=== PATIENT | male | born 1960 | race Two or more races ===

== ENCOUNTER 2018-10-10 07:30 | Inpatient (IN) | payer MEDICARE, OTHER ==
[~2018-10-10 07:30] MED LIST: Acetaminophen 500 MG Tab PO ONE; Celecoxib 200 MG Cap PO ONE; Dextrose 5%-Lactated Ringers 1,000 ML IV SCH; Ketamine 50 MG in Sodium Chloride 0.9% 49.5 ML IV SCH; Ketamine 500 MG/5 ML MDV IV SCH; Ropivacaine 58 ML, Dexamethasone 8 MG, EPINEPHrine 0.4 MG, Sodium Chloride 0.9% 19.6 ML NERVRT SCH; ceFAZolin 2 GM in Premix Bag 1 BAG IV ONE
[2018-11-07] MEDS ORDERED: Acetaminophen 500 MG Tab PO ONE (06:00)
[2018-11-07] MEDS ORDERED: Dextrose 5%-Lactated Ringers 1,000 ML IV SCH (06:00)
[2018-11-07] MEDS ORDERED: ceFAZolin 2 GM in Premix Bag 1 BAG IV ONE (06:30)
[2018-11-07] MEDS ORDERED: Meropenem 500 MG SDV ONE (06:35)
[2018-11-07] MEDS ORDERED: Succinylcholine 200 MG/10 ML MDV ONE (07:03)
[2018-11-07] MEDS ORDERED: Neostigmine Methylsulfate 1 MG/ML 5 ML Syringe ONE (07:03)
[2018-11-07] MEDS ORDERED: fentaNYL 250 MCG/5 ML SDV ONE (07:03)
[2018-11-07] MEDS ORDERED: Dexamethasone 4 MG/ML SDV ONE (07:03)
[2018-11-07] MEDS ORDERED: Glycopyrrolate 0.2 MG/ML 5 ML MDV ONE (07:03)
[2018-11-07] MEDS ORDERED: Rocuronium 50 MG/5 ML Vial ONE (07:03)
[2018-11-07] MEDS ORDERED: Propofol 200 MG/20 ML SDV ONE (07:03)
[2018-11-07] MEDS ORDERED: Ondansetron 4 MG/2 ML SDV ONE (07:03)
[2018-11-07] MEDS ORDERED: Ketamine 500 MG/5 ML MDV IV SCH (07:30)
[2018-11-07] MEDS ORDERED: Ketamine 50 MG in Sodium Chloride 0.9% 49.5 ML IV SCH (07:30)
[2018-11-07] MEDS ORDERED: Ropivacaine 58 ML, Dexamethasone 8 MG, EPINEPHrine 0.4 MG, Sodium Chloride 0.9% 19.6 ML NERVRT SCH ×4 (07:30)
[2018-11-07] MEDS ORDERED: HYDROmorphone/Normal Saline 15 MG/30 ML PCA IV PRN (07:42)
[2018-11-07] MEDS ORDERED: Naloxone 0.4 MG/ML SDV IV PRN (07:55)
[2018-11-07] MEDS ORDERED: HYDROmorphone 2 MG Tab PO PRN (10:28)
[2018-11-07] MEDS ORDERED: Cyclobenzaprine 10 MG Tab PO PRN (10:29)
[2018-11-07] MEDS ORDERED: hydrOXYzine HCl 100 MG/2 ML SDV IM PRN (10:29)
[2018-11-07] MEDS: Tamsulosin 0.4 MG Cap.ER PO SCH ×2 (11:39→20:25)
[2018-11-07] MEDS: Ondansetron 4 MG/2 ML SDV IVPUSH PRN ×3 (13:03→20:34)
[2018-11-07] MEDS: Acetaminophen 500 MG Tab PO SCH ×2 (13:04→20:25)
[2018-11-07] MEDS: ceFAZolin 2 GM in Premix Bag 1 BAG IV SCH ×2 (15:02→22:44)
[2018-11-07] MEDS: Dextrose 5%-Lactated Ringers 1,000 ML IV SCH (17:43)
[2018-11-08] MEDS: Dextrose 5%-Lactated Ringers 1,000 ML IV SCH (00:38)
[2018-11-08] MEDS: Acetaminophen 500 MG Tab PO SCH ×4 (02:48→20:21)
[2018-11-08] MEDS: ceFAZolin 2 GM in Premix Bag 1 BAG IV SCH (05:45)
--- NOTE | 2018-11-08 07:42 | PCM.PN ---
- General Info Date of Service: 11/08/18 Admission Dx/Problem (Free Text): Incisional Hernia Subjective Update: POD #1. Pt doing well. Tolerating oral intake. Good urine output; is taking flomax. +gas, no BM yet. Functional Status: Reports: Pain Controlled, Tolerating Diet, Urinating - Review of Systems General: Reports: No Symptoms HEENT: Reports: No Symptoms Pulmonary: Reports: No Symptoms Cardiovascular: Reports: No Symptoms Gastrointestinal: Reports: Abdominal Pain Genitourinary: Reports: No Symptoms Musculoskeletal: Reports: No Symptoms Skin: Reports: No Symptoms Neurological: Reports: No Symptoms Psychiatric: Reports: No Symptoms - Patient Data Vitals - Most Recent: Last Vital Signs Temp 36.1 C 11/08/18 07:15 Pulse 85 11/08/18 07:15 Resp 16 11/08/18 07:15 BP 129/76 11/08/18 07:15 Pulse Ox 97 11/08/18 07:15 Weight - Most Recent: 114.668 kg I&O - Last 24 Hours: Intake & Output 11/07/18 11/08/18 11/08/18 22:59 06:59 14:59 Intake Total 2270 1982 Output Total 1025 1600 675 Balance 1245 382 -675 Med Orders - Current: Current Medications Acetaminophen (Tylenol Extra Strength) 1,000 mg PO Q6H [facility] Last Admin: 11/08/18 02:48 Dose: 1,000 mg Bisacodyl (Dulcolax) 10 mg PO BID [facility] Cyclobenzaprine HCl (Flexeril) 10 mg PO Q6H PRN PRN Reason: MUSCLSE SPASM Hydromorphone HCl (Dilaudid) 4 mg PO Q4H PRN PRN Reason: PAIN Last Admin: 11/07/18 17:51 Dose: 4 mg Hydroxyzine HCl (Vistaril) 100 mg IM Q4H PRN PRN Reason: PAIN Dextrose/Lactated Ringer's (Dextrose 5%-Lactated Ringers) 1,000 mls @ 150 mls/ hr IV ASDIRECTED [facility] Last Admin: 11/08/18 00:38 Dose: 150 mls/hr Ibuprofen (Motrin) 600 mg PO Q6H PRN PRN Reason: Pain Lisinopril (Prinivil) 10 mg PO DAILY [facility] Naloxone HCl (Narcan) 0.1 mg IV ASDIRECTED PRN PRN Reason: decreased respiratory rate Ondansetron HCl (Zofran) 4 mg IVPUSH Q4H PRN PRN Reason: Nausea Last Admin: 11/07/18 20:34 Dose: 4 mg Tamsulosin HCl (Flomax) 0.4 mg PO BEDTIME [facility] Last Admin: 11/07/18 20:25 Dose: 0.4 mg Discontinued Medications Acetaminophen (Tylenol Extra Strength) 1,000 mg PO ONETIME ONE Stop: 10/10/18 07:16 Acetaminophen (Tylenol Extra Strength) 1,000 mg PO ONETIME ONE Stop: 11/07/18 06:01 Last Admin: 11/07/18 06:18 Dose: 1,000 mg Celecoxib (Celebrex) 200 mg PO ONETIME ONE Stop: 10/10/18 07:16 Ropivacaine 58 ml/Dexamethasone 8 mg/Epinephrine HCl 0.4 mg/ Sodium Chloride 19.6 ml 0 ml NERVRT ASDIRECTED [facility] Last Admin: 11/07/18 08:10 Dose: 80 syringe Dexamethasone (Dexamethasone) Confirm Administered Dose 4 mg .ROUTE .STK-MED ONE Stop: 11/07/18 07:04 Fentanyl (Sublimaze) Confirm Administered Dose 250 mcg .ROUTE .STK-MED ONE Stop: 11/07/18 07:04 Glycopyrrolate (Robinul) Confirm Administered Dose 1 mg .ROUTE .STK-MED ONE Stop: 11/07/18 07:04 Hydromorphone HCl (Dilaudid Polymerization Oven Tender 15 Mg In Ns 30 Ml) 0 mg IV ASDIRECTED PRN; Protocol PRN Reason: Pain Last Admin: 11/07/18 08:12 Dose: 0.3 mg Cefazolin Sodium/Dextrose 2 gm (/ Premix) 50 mls @ 100 mls/hr IV ONETIME ONE Stop: 11/07/18 06:59 Last Admin: 11/07/18 07:08 Dose: 100 mls/hr Dextrose/Lactated Ringer's (Dextrose 5%-Lactated Ringers) 1,000 mls @ 100 mls/ hr IV ASDIRECTED [facility] Last Admin: 11/07/18 06:19 Dose: 100 mls/hr Linezolid (Zyvox) Confirm Administered Dose 300 mls @ as directed .ROUTE .STK- MED ONE Stop: 11/07/18 06:36 Cefazolin Sodium/Dextrose 2 gm (/ Premix) 50 mls @ 100 mls/hr IV Q8H [facility] Stop: 11/08/18 06:59 Last Admin: 11/08/18 05:45 Dose: 100 mls/hr Ketamine HCl (Ketalar) 35 mg IV ASDIRECTED [facility] Linezolid (Zyvox) 600 mg IRR .STK-MED ONE Stop: 11/07/18 07:50 Last Admin: 11/07/18 07:49 Dose: 600 mg Meropenem (Merrem) Confirm Administered Dose 500 mg .ROUTE .STK-MED ONE Stop: 11/07/18 06:36 Last Admin: 11/07/18 07:48 Dose: 500 mg Neostigmine Methylsulfate (Neostigmine) Confirm Administered Dose 5 mg .ROUTE .STK-MED ONE Stop: 11/07/18 07:04 Ondansetron HCl (Zofran) Confirm Administered Dose 4 mg .ROUTE .STK-MED ONE Stop: 11/07/18 07:04 Propofol (Diprivan 20 Ml) Confirm Administered Dose 200 mg .ROUTE .STK-MED ONE Stop: 11/07/18 07:04 Rocuronium [place] (Zemuron) Confirm Administered Dose 50 mg .ROUTE .STK-MED ONE Stop: 11/07/18 07:04 Succinylcholine Chloride (Quelicin) Confirm Administered Dose 200 mg .ROUTE .STK -MED ONE Stop: 11/07/18 07:04 - Exam Quality Assessment: DVT Prophylaxis General: Alert, Oriented HEENT: Pupils Equal, Pupils Reactive, EOMI, Mucous Membr. Moist/[place]: Supple Lungs: Clear to Auscultation, Normal Respiratory Effort Cardiovascular: Regular Rate, Regular Rhythm GI/Abdominal Exam: Normal Bowel Sounds, Soft Extremities: Normal Inspection, Normal Range of Motion, Non-Tender, No Pedal Edema, Normal Capillary Refill Skin: Warm, Dry, Intact Wound/Incisions: Healing Well Neurological: No New Focal Deficit Psy/Mental Status: Alert, Normal Affect, Normal Mood - Problem List & Annotations (1) Incarcerated incisional hernia SNOMED Code(s): 331965671 Code(s): K43.0 - INCISIONAL HERNIA WITH OBSTRUCTION, WITHOUT GANGRENE Status: Acute Current Visit: Yes (2) Status post hernia repair SNOMED Code(s): 39130070551463, 89530995350706 Code(s): Z98.890 - OTHER SPECIFIED POSTPROCEDURAL STATES; Z87.19 - PERSONAL HISTORY OF OTHER DISEASES OF THE DIGESTIVE SYSTEM Status: Acute Current Visit: Yes Annotation/Comment:: Incisional - Problem List Review Problem List Initiated/Reviewed/Updated: Yes - Plan Plan:: 1. s/p laparoscopic incisional hernia repair. Plan for discharge home tomorrow. Will add dulcolax BID. Had some nausea after taking Dilaudid, will add ibuprofen prn.
[2018-11-08] MEDS: Bisacodyl 5 MG Tab PO SCH ×2 (08:26→20:21)
[2018-11-08] MEDS: Lisinopril 10 MG Tab PO SCH (08:27)
[2018-11-08] MEDS: Ibuprofen 600 MG Tab PO PRN ×3 (08:33→20:26)
[2018-11-08] MEDS: Tamsulosin 0.4 MG Cap.ER PO SCH (20:22)
[2018-11-09] MEDS: Acetaminophen 500 MG Tab PO SCH ×2 (02:34→08:34)
[2018-11-09] MEDS ORDERED: Magnesium Hydroxide 400 MG/5 ML Susp 30 ML Cup PO PRN (07:39)
--- NOTE | 2018-11-09 08:01 | DISCH ---
ADMISSION DIAGNOSES: 1. Incarcerated incisional hernia. 2. Hypertension. 3. Low back pain, chronic. DISCHARGE DIAGNOSES: 1. Diagnostic laparoscopy with lysis of adhesions: a. Repair of incarcerated incisional hernia with mesh. b. Repair of area of deserialization of small bowel. c. Placement of Vicryl mesh for incarcerated incisional hernia, extensive intraabdominal adhesions, and area of deserialization of small bowel. Date of surgery: 11/07/2018. Surgeon: Sloan Ibarra MD. HISTORY: Gaston Barnes is a 58-year-old male with incarcerated incisional hernia. After preoperative evaluation and discussion of possible risks and possible complications, he wished to proceed with surgical procedure. HOSPITAL COURSE: Gaston had a surgery on 11/07/2018. He had no operative complications. On postoperative day #1, his pain was managed with oral pain medication and he was given bowel stimulation. On postoperative day #2, he was able to be discharged to home. He had not had a bowel movement, but was passing flatus. His pain was controlled with Tylenol and ibuprofen. Vital signs were stable. Activity was good. PHYSICAL EXAMINATION: GENERAL: Gaston Barnes is a 58-year-old male. VITAL SIGNS: Height is 5 feet 10 inches, weight is 252 pounds. TPR is 97, 77, 16, blood pressure 136/85. HEENT: Negative. NECK: Supple. HEART: Regular rate and rhythm. LUNGS: Clear. ABDOMEN: Sutures intact. Incisions look good. He has a roll of Kerlix over the incision site and has been wearing abdominal binder. EXTREMITIES: Without peripheral edema. DISPOSITION: Discharged to home. CONDITION: Stable and improving. FOLLOWUP: Followup appointment with Sloan Ibarra MD, on 11/15/2018 at 9:00 a.m. HOME MEDICATIONS: 1. Tylenol Extra Strength 1000 mg oral q.6 h. 2. Motrin/ibuprofen 600 mg oral q.6 h. p.r.n. pain, take with food or milk. 3. Milk of magnesia 30 mL, take 1 daily p.r.n. constipation, two doses sent home with the patient. 4. Flomax/tamsulosin 0.4 mg oral at bedtime, #30. 5. He is to resume home medication of lisinopril 10 mg oral daily. DISCHARGE DIET: Usual diet as tolerated. Drink 8 to 10 glasses of water a day. ACTIVITY: No lifting over 10 pounds for 6 weeks. Driving: Do not drive for 1 week. Shower/bathing: May shower. DISCHARGE INSTRUCTIONS: Notify provider if any fever, increased pain. Keep site clean and dry. Wound incision care, keep a pressure dressing over the area where hernia was to prevent fluid buildup between abdomen and mesh and wear abdominal binder for at least 2 weeks, longer if tolerated. SPECIAL INSTRUCTIONS: Use incentive spirometer 10 times every hour while awake.
[2018-11-09] MEDS: Bisacodyl 5 MG Tab PO SCH (08:25)
[2018-11-09] MEDS: Lisinopril 10 MG Tab PO SCH (08:34)
--- NOTE | 2018-11-09 21:07 | OR ---
DATE OF PROCEDURE: 11/07/2018 PREOPERATIVE DIAGNOSIS: Incarcerated incisional hernia. POSTOPERATIVE DIAGNOSES: 1. Incarcerated incisional hernia. 2. Extensive intraabdominal adhesions. 3. Areas of small bowel superficial deserosalization x2. OPERATIVE PROCEDURES: 1. Diagnostic laparoscopy with lysis of extensive adhesions. a. Repair of incarcerated incisional hernia with mesh (70811). b. Repair of area of superficial deserosalization of small bowel x2 (55812). c. Placement of Vicryl mesh to displace pelvic and abdominal wall from underlying viscera to limit recurrent adhesion formation (51722). ANESTHESIA: General. SAND CONTROL WORKER: Shellie Eden PA-C and PAS. Lisa INDICATION FOR PROCEDURE: This is a 58-year-old male presenting with incarcerated incisional hernia. He has had a lower midline incision used previously for back surgery exposure and presents now with an incarcerated hernia on the upper end of the lower midline incision. This appears more likely to contain incarcerated omentum based on CT findings and the clinical presentation. The plan is to proceed with diagnostic laparoscopy with laparotomy if necessary and repair of the hernia with mesh. Potential risks including bleeding, infection, injury to underlying viscera, possible recurrence of the hernia or the mesh becoming infected as well as remote possibility of cardiopulmonary, septic, or hemorrhagic complications leading to were all discussed, and the patient wishes to proceed. DETAILS OF PROCEDURE: The patient was taken to the operating room and placed in a supine position. After general endotracheal anesthesia was induced, a Cha catheter was inserted and the abdomen prepped and draped. The Cha catheter was removed at the end of the procedure. In the right lateral abdomen, a transverse incision was made and the peritoneal cavity entered under direct vision with an Optiview trocar inflated to 15 mmHg pressure of CO2. Laparoscope was reinserted. No underlying trocar insertion site or injuries were seen. Following this, then 5 mm trocars were placed in the right lower quadrant as well as the right upper quadrant under direct vision. Following this, then extensive adhesions between the omentum and the anterior abdominal wall were divided with a Harmonic scalpel. As one approached the lower abdomen, there were 2 areas of small bowel, which were somewhat adherent to the abdominal wall. A dissection plane could generally be established between those and this was carried down with sharp dissection. At the conclusion of that phase and clearance of abdominal wall for placement of the mesh, the bowel was inspected. There were 2 areas that appeared to be very superficial areas of deserosalization, and these were then re-serosalized with [id number] stitches of 3-0 Vicryl seromuscular stitch, and at the conclusion, a fibrin sealant was placed over these areas as well. At this point, the area of the herniation was encountered with a fair bit of incarcerated omentum within it. This was all eventually reduced. Some of the hernia sac was then excised as well and sent as a specimen. The fascial defect itself measured around 3 to 4 cm and was circular in configuration. Initially, we reapproximated the fascia from within using an 0 Vicryl stitch. To these, [id number] stitches were placed, which brought up the fascia to have apposition in closing this with a transversely oriented approach. A 20.[address] mesh with the balloon positioning system was then selected. This was soaked in an antibiotic- containing saline solution and placed into an intraperitoneal location. The balloon catheter was then pulled up through a stab wound overlying the central area of the hernia and the balloon inflated, thus pushing the mesh up against the abdominal wall. The mesh was then refixed to the abdominal wall with absorbable tacking screws and outer layer was initially placed circumferentially and then an inner layer more close to the edge of the fascial defect. At that point, the balloon was deflated and removed. There appeared to be good fixation of the mesh in all areas. The fibrin sealant was at that point applied over the small bowel re-serosalization areas and the bowel was once again inspected and no other additional abnormalities appeared to be present. The Vicryl mesh was then placed across the lower abdomen and down into the pelvis to some extent and then up against the rest of the abdominal wall including underlying the mesh to limit recurrent adhesion formation. Some additional antibiotic consisting of meropenem and Zyvox was then injected as well. At that point, the trocars were removed. Fascia at the 12 mm camera port was closed with 0 Vicryl stitch and skin at each incision with 4-0 Vicryl skin stitch. Dressing was applied. The patient was taken to the recovery room in satisfactory condition. There were no evident complications. Physician esol teacher assistant, Shellie Eden, played an essential role in assisting in this case, helping to position the patient, retract structures as needed, as well as suturing and cutting sutures when indicated. Her presence improved patient safety and decreased the operative time. Sloan Ibarra MD /[id number]
== END 2018-11-09 09:15 | disposition home or self-care (01) | DRG 331 ==
LOC: JP.SDSSCHI 11-07 05:20 → JP.SDS 11-07 05:21 → EDSTATUS 11-07 07:15 → JP.MS 11-07 09:30
PROVIDERS: ADMIT Surgery; ATTEND Surgery
PROC: 0WUF4JZ Supplement Abdominal Wall with Synthetic Substitute, Percutaneous Endoscopic Approach (ICD-10-PCS; principal; 2018-11-07)
PROC: 0DQ84ZZ Repair Small Intestine, Percutaneous Endoscopic Approach (ICD-10-PCS; 2018-11-07)
PROC: 0DNU4ZZ Release Omentum, Percutaneous Endoscopic Approach (ICD-10-PCS; 2018-11-07)
PROC: 0DN84ZZ Release Small Intestine, Percutaneous Endoscopic Approach (ICD-10-PCS; 2018-11-07)
PROC: 0DNW4ZZ Release Peritoneum, Percutaneous Endoscopic Approach (ICD-10-PCS; 2018-11-07)
PROC: 3E0M45Z Introduction of Adhesion Barrier into Peritoneal Cavity, Percutaneous Endoscopic Approach (ICD-10-PCS; 2018-11-07)
DX: K43.0 Incisional hernia with obstruction, without gangrene (principal); K66.0 Peritoneal adhesions (postprocedural) (postinfection); I10 Essential (primary) hypertension; Z87.891 Personal history of nicotine dependence; Z88.5 Allergy status to narcotic agent; K59.8 Other specified functional intestinal disorders; M54.9 Dorsalgia, unspecified; G89.29 Other chronic pain
CPT/HCPCS: 36415; 80048; 83735; 84100; 85027; 88302; A9270-GY; C1781; J0171; J0330; J0690; J1100; J1170; J2020; J2185; J2405; J2704; J2710; J2795; J3010; J3490; J7042; J7050

== ENCOUNTER 2018-11-09 13:07 | Inpatient (IN) | payer MEDICARE, OTHER ==
[2018-11-09] MEDS ORDERED: HYDROmorphone 0.5 MG/0.5 ML Syringe IVPUSH ONE ×2 (13:15→13:58)
[2018-11-09] MEDS ORDERED: Sodium Chloride 0.9% 1,000 ML IV SCH ×2 (13:15→14:15)
[2018-11-09] MEDS ORDERED: Ondansetron 4 MG/2 ML SDV IVPUSH ONE (13:16)
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
[2018-11-09] MEDS ORDERED: Piperacillin/Tazobactam 4.5 GM in Sodium Chloride 0.9% 100 ML IV ONE (14:24)
[2018-11-09] MEDS ORDERED: Sodium Chloride 0.9% 10 ML Syringe FLUSH ONE (14:27)
[2018-11-09] MEDS ORDERED: Sodium Chloride 0.9% 75 ML IV ONE (14:27)
[2018-11-09] MEDS ORDERED: Iopamidol 612 MG/ML 150 ML Bottle IV SCH (14:30)
[2018-11-09] MEDS ORDERED: Dexamethasone 4 MG/ML SDV ONE (15:09)
[2018-11-09] MEDS ORDERED: Ondansetron 4 MG/2 ML SDV ONE (15:09)
[2018-11-09] MEDS ORDERED: fentaNYL 250 MCG/5 ML SDV ONE (15:09)
[2018-11-09] MEDS ORDERED: Succinylcholine 200 MG/10 ML MDV ONE (15:09)
[2018-11-09] MEDS ORDERED: Propofol 200 MG/20 ML SDV ONE (15:09)
[2018-11-09] MEDS ORDERED: Neostigmine Methylsulfate 1 MG/ML 5 ML Syringe ONE (15:09)
[2018-11-09] MEDS ORDERED: Glycopyrrolate 0.2 MG/ML 5 ML MDV ONE (15:09)
[2018-11-09] MEDS ORDERED: Rocuronium 50 MG/5 ML Vial ONE ×2 (15:09→16:12)
--- NOTE | 2018-11-09 15:29 | CRLCT ---
INDICATION: pain in mid abdomen. status post surgery 07 November 2018150 mL isovue 300. 410 images HISTORY: Abdominal pain. COMPARISON: None. TECHNIQUE: CT of the abdomen and pelvis. 150 cc of Isovue-300 IV. Coronal/sagittal reconstruction images. FINDINGS: Lung bases: There is no pleural or pericardial effusion. The heart size is normal. Mildly distended distal esophagus. There is bibasilar dependent atelectasis. Abdomen/pelvis: There is a small amount of perihepatic ascites, which extends into the hepatorenal fossa. There is no solid hepatic mass. No dilation of intrahepatic biliary radicals. No portal vein thrombosis. No inflammatory changes of the gallbladder. No adrenal mass. Symmetric nephrograms. Benign right renal cyst. Spleen size is normal. No pancreatic mass or pancreatic duct dilation. No glandular atrophy. Trace amount of free fluid in the pelvis. Small amount of free intraperitoneal air. There is no wall thickening within the small bowel. There is collapse of the sigmoid and descending colon, which mimics wall thickening. There is no pneumatosis. There is no portal venous gas. There is no loculated fluid collection. The sigmoid colon appears adherent to the anterior abdominal wall, with extraluminal gas seen on series 2, image 98. Differential diagnosis includes a contained perforation. No adenopathy is seen by size criteria in the pelvis, small bowel mesentery, or gastrohepatic ligament. The visceral artery branches are patent. There is a 13 millimeter short axis dimension lymph node adjacent to the extrahepatic main portal vein on image 41 of series 2. The splenic vein and SMV are patent. There is a small fluid collection containing gas within the anterior abdominal wall, which is seen best on image 84 series 2. This could represent a postoperative hematoma, seroma, or abscess. The bone windows demonstrate no lytic or blastic bone lesions. The alignment is preserved. Fusion changes are present from L4 through S1. Impression: 1. Pneumoperitoneum, with a small amount of ascites. The patient is post recent ventral abdominal wall hernia repair. 2. There is a small fluid collection present along the anterior abdominal wall containing a locule of gas, which measures 2.8 x 4.7 cm in AP and transverse dimensions. This is seen best on image 84 of series 2. Differential diagnosis includes a postoperative hematoma, seroma, or less likely abscess. 3. Several loops of small bowel appear adherent to the anterior abdominal wall, likely adhesive disease. 4. This includes a loop of sigmoid colon with adjacent extraluminal gas on image 98, series 2. Differential diagnosis for this finding includes a contained perforation. A free perforation should be associated with large volume pneumoperitoneum, which is absent in this case. 5. 13 millimeter short axis dimension lymph node adjacent to the extrahepatic main portal vein. This is indeterminate. Attention on follow-up. 6. Case reviewed with Dr. Ibarra of the referring clinical service, 11/09/2018, 1525 hours. Dictated by Hemant Rodriguez MD @ 11/09/2018 3:28:03 PM Please note that all CT scans at this facility use dose modulation, iterative reconstruction, and/or weight-based dosing when appropriate to reduce radiation dose to as low as reasonably achievable. Dictated by: Hemant Rodriguez MD @ 11/09/2018 15:28:30 (Electronically Signed)
--- NOTE | 2018-11-09 15:50 | CRLCR ---
INDICATION: Abdominal pain. COMPARISON: None available. FINDINGS: PA and lateral views of the chest were obtained. There is very shallow inspiration resulting in crowding of lung markings. I believe that the lungs are clear. The heart is increased in size, probably simply from shallow inspiration. The mediastinum is normal in appearance. The osseous structures are normal in appearance for the patient`s age. IMPRESSION: Very shallow inspiration results in crowding of lung markings. Probably no active disease seen in the chest. Dictated by Wayne Garg MD @ Nov 09 2018 3:47PM Signed by Dr. Wayne Garg @ Nov 09 2018 3:48PM
[2018-11-09] MEDS ORDERED: Phenylephrine 1% 10 MG/ML SDV ONE (15:54)
[2018-11-09] MEDS ORDERED: Ropivacaine 57 ML, Dexamethasone 8 MG, EPINEPHrine 0.4 MG, Sodium Chloride 0.9% 20.6 ML NERVRT SCH ×4 (16:00)
[2018-11-09] MEDS ORDERED: Meropenem 500 MG SDV ONE ×3 (16:03→16:20)
[2018-11-09] MEDS ORDERED: Naloxone 0.4 MG/ML SDV IV PRN (16:14)
[2018-11-09] MEDS ORDERED: Sodium Chloride 0.9% 10 ML ONE (16:21)
[2018-11-09] MEDS ORDERED: Lactated Ringers 1,000 ML ONE (17:32)
[2018-11-09] MEDS ORDERED: Norepinephrine 4 MG/4 ML SDV ONE (18:37)
[2018-11-09] MEDS ORDERED: Dextrose 5% in Water 250 ML ONE (18:41)
[2018-11-09] MEDS ORDERED: Labetalol 20 MG/4 ML Syringe IVPUSH PRN (18:48)
[2018-11-09] MEDS: Dextrose 5%-Lactated Ringers 1,000 ML IV SCH (19:00)
[2018-11-09] MEDS ORDERED: Norepinephrine 4 MG in Dextrose 5% in Water 246 ML IV SCH ×2 (19:00)
[2018-11-09] MEDS: Lactated Ringers 1,000 ML IV SCH ×2 (19:00→20:50)
[2018-11-09] MEDS: Meropenem 500 MG in Sodium Chloride 0.9% 50 ML IV SCH (19:15)
[2018-11-09] MEDS: Pantoprazole 40 MG Vial IVPUSH SCH (19:16)
[2018-11-09] MEDS: hydrOXYzine HCl 100 MG/2 ML SDV IM PRN (19:29)
[2018-11-09] MEDS ORDERED: Lactated Ringers 750 ML IV SCH (19:30)
[2018-11-09] MEDS: Piperacillin/Tazobactam 3.375 GM in Sodium Chloride 0.9% 50 ML IV SCH (20:43)
[2018-11-10] MEDS: Meropenem 500 MG in Sodium Chloride 0.9% 50 ML IV SCH ×4 (01:00→20:35)
[2018-11-10] MEDS: Piperacillin/Tazobactam 3.375 GM in Sodium Chloride 0.9% 50 ML IV SCH (02:41)
[2018-11-10] MEDS: Dextrose 5%-Lactated Ringers 1,000 ML IV SCH ×2 (05:44→16:09)
[2018-11-10] MEDS: Lactated Ringers 1,000 ML IV SCH ×2 (06:24→07:00)
--- NOTE | 2018-11-10 06:46 | PCM.PN ---
- General Info Date of Service: 11/10/18 Admission Dx/Problem (Free Text): Acute Abdominal Pain Subjective Update: Pt started on levophed drip yesterday evening. Fair urine output. Pain controlled. Functional Status: Reports: Pain Controlled, Urinating - Review of Systems General: Reports: No Symptoms HEENT: Reports: No Symptoms Pulmonary: Reports: No Symptoms Cardiovascular: Reports: No Symptoms Gastrointestinal: Reports: Abdominal Pain Genitourinary: Reports: No Symptoms Musculoskeletal: Reports: No Symptoms Skin: Reports: No Symptoms Neurological: Reports: No Symptoms Psychiatric: Reports: No Symptoms - Patient Data Vitals - Most Recent: Last Vital Signs Temp 35.6 C 11/10/18 03:00 Pulse 77 11/10/18 06:34 Resp 12 11/10/18 06:34 BP 102/63 11/10/18 06:34 Pulse Ox 94 L 11/10/18 06:34 Weight - Most Recent: 128.503 kg I&O - Last 24 Hours: Intake & Output 11/09/18 11/09/18 11/10/18 14:59 22:59 06:59 Intake Total 3031 Output Total 475 605 Balance -475 2426 Lab Results Last 24 Hours: Laboratory Results - last 24 hr 11/09/18 11/09/18 11/09/18 Range/Units 13:57 13:57 13:57 WBC 10.6 (4.5-11.0) K/uL RBC 4.65 (4.30-5.90) M/uL Hgb 13.8 (12.0-15.0) g/dL Hct 42.4 (40.0-54.0) % MCV 91 (80-98) fL MCH 30 (27-31) pg MCHC 33 (32-36) % Plt Count 215 (150-400) K/uL Neut % (Auto) 90 H (36-66) % Lymph % (Auto) 5 L (24-44) % Christian % (Auto) 4 (2-6) % Eos % (Auto) 0 L (2-4) % Baso % (Auto) 0 (0-1) % Sodium 138 L (140-148) mmol/L Potassium 4.0 (3.6-5.2) mmol/L Chloride 101 (100-108) mmol/L Carbon Dioxide 26 (21-32) mmol/L Anion Gap 15.0 H (5.0-14.0) mmol/L BUN 24 H (7-18) mg/dL Creatinine 1.2 (0.8-1.3) mg/dL Est Cr Clr Drug Dosing TNP Estimated GFR (MDRD) > 60 (>60) BUN/Creatinine Ratio Not Reportable Glucose 88 (74-106) mg/dL Lactic Acid (0.4-2.0) mmol/L Calcium 8.2 L (8.5-10.1) mg/dL Phosphorus (2.5-4.9) mg/dL Magnesium (1.8-2.4) mg/dL Total Bilirubin 0.6 (0.2-1.0) mg/dL AST 28 (15-37) U/L ALT 26 (12-78) U/L Alkaline Phosphatase 45 L (46-116) U/L NT-Pro-B Natriuret Pep (5-125) pg/mL Total Protein 6.6 (6.4-8.2) g/dL Albumin 3.1 L (3.4-5.0) g/dL Globulin 3.5 (2.3-3.5) g/dL Albumin/Globulin Ratio 0.9 L (1.2-2.2) Urine Color Yellow Urine Appearance Clear Urine pH 5.0 (4.5-8.0) Ur Specific Sims 1.015 (1.008-1.030) Urine Protein Negative (NEGATIVE) mg/dL Urine Glucose (UA) Normal (NEGATIVE) mg/dL Urine Ketones Negative (NEGATIVE) mg/dL Urine Occult Blood Moderate (NEGATIVE) Urine Nitrite Negative (NEGAITVE) Urine Bilirubin Negative (NEGATIVE) Urine Urobilinogen Normal (NORMAL) mg/dL Ur Leukocyte Esterase Negative (NEGATIVE) Urine RBC 0-5 (0-5) Urine WBC 0-5 (0-5) Ur Epithelial Cells Rare Amorphous Sediment Not seen Urine Bacteria Not seen Urine Mucus Not seen 11/09/18 11/10/18 11/10/18 Range/Units 14:03 04:40 04:40 WBC 19.8 H (4.5-11.0) K/uL RBC 4.23 L (4.30-5.90) M/uL Hgb 12.3 (12.0-15.0) g/dL Hct 39.6 L (40.0-54.0) % MCV 94 (80-98) fL MCH 29 (27-31) pg MCHC 31 L (32-36) % Plt Count 195 (150-400) K/uL Neut % (Auto) (36-66) % Lymph % (Auto) (24-44) % Christian % (Auto) (2-6) % Eos % (Auto) (2-4) % Baso % (Auto) (0-1) % Sodium 136 L (140-148) mmol/L Potassium 5.6 H (3.6-5.2) mmol/L Chloride 102 (100-108) mmol/L Carbon Dioxide 26 (21-32) mmol/L Anion Gap 13.6 (5.0-14.0) mmol/L BUN 20 H (7-18) mg/dL Creatinine 1.2 (0.8-1.3) mg/dL Est Cr Clr Drug Dosing 69.28 Estimated GFR (MDRD) > 60 (>60) BUN/Creatinine Ratio Glucose 152 H (74-106) mg/dL Lactic Acid 2.5 H (0.4-2.0) mmol/L Calcium 7.5 L (8.5-10.1) mg/dL Phosphorus 4.8 (2.5-4.9) mg/dL Magnesium 2.0 (1.8-2.4) mg/dL Total Bilirubin 1.2 H D (0.2-1.0) mg/dL AST 58 H D (15-37) U/L ALT 34 (12-78) U/L Alkaline Phosphatase 29 L (46-116) U/L NT-Pro-B Natriuret Pep 784 H (5-125) pg/mL Total Protein 6.0 L (6.4-8.2) g/dL Albumin 2.5 L (3.4-5.0) g/dL Globulin 3.5 (2.3-3.5) g/dL Albumin/Globulin Ratio 0.7 L (1.2-2.2) Urine Color Urine Appearance Urine pH (4.5-8.0) Ur Specific Sims (1.008-1.030) Urine Protein (NEGATIVE) mg/dL Urine Glucose (UA) (NEGATIVE) mg/dL Urine Ketones (NEGATIVE) mg/dL Urine Occult Blood (NEGATIVE) Urine Nitrite (NEGAITVE) Urine Bilirubin (NEGATIVE) Urine Urobilinogen (NORMAL) mg/dL Ur Leukocyte Esterase (NEGATIVE) Urine RBC (0-5) Urine WBC (0-5) Ur Epithelial Cells Amorphous Sediment Urine Bacteria Urine Mucus Jonh Results Last 24 Hours: Microbiology 11/09/18 16:42 Gram Stain - Final Abdominal Fluid - Drainage 11/09/18 16:40 Gram Stain - Final Abdominal Fluid - Drainage Med Orders - Current: Current Medications Ropivacaine 57 ml/Dexamethasone 8 mg/Epinephrine HCl 0.4 mg/ Sodium Chloride 20.6 ml 0 ml NERVRT ASDIRECTED DWAYNE Last Admin: 11/09/18 17:26 Dose: 80 syringe Hydromorphone HCl (Dilaudid [employer] 15 Mg In Ns 30 Ml) 0 mg IV ASDIRECTED PRN; Protocol PRN Reason: POUL[employer]IMMER PAIN CONTROL Hydroxyzine HCl (Vistaril) 100 mg IM Q4H PRN PRN Reason: Pain Last Admin: 11/09/18 19:29 Dose: 100 mg Meropenem 500 mg/ Sodium (Chloride) 50 mls @ 100 mls/hr IV Q6H [facility] Last Admin: 11/10/18 01:00 Dose: 100 mls/hr Norepinephrine Bitartrate 4 mg (/ Dextrose/Water) 250 mls @ 3.75 mls/hr IV TITRATE [facility]; Protocol Last Titration: 11/10/18 06:10 Dose: 1 mcg/min, 3.75 mls/hr Dextrose/Lactated Ringer's (Dextrose 5%-Lactated Ringers) 1,000 mls @ 100 mls/ hr IV ASDIRECTED [facility] Last Admin: 11/10/18 05:44 Dose: 100 mls/hr Lactated Ringer's (Ringers, Lactated) 1,000 mls @ 100 mls/hr IV ASDIRECTED [facility] Last Admin: 11/10/18 06:24 Dose: 100 mls/hr Piperacillin Sod/Tazobactam (Sod 3.375 gm/ Sodium Chloride) 50 mls @ 100 mls/ hr IV Q6H [facility] Last Admin: 11/10/18 02:41 Dose: 100 mls/hr Labetalol HCl (Normodyne) 5 - 10 mg IVPUSH Q2H PRN; Protocol PRN Reason: Hypertension Naloxone HCl (Narcan) 0.1 mg IV ASDIRECTED PRN PRN Reason: decreased respiratory rate Ondansetron HCl (Zofran) 4 mg IVPUSH Q4H PRN PRN Reason: Nausea/Vomiting Pantoprazole Sodium (Protonix Iv) 40 mg IVPUSH Q12H [facility] Stop: 11/10/18 19:31 Last Admin: 11/09/18 19:16 Dose: 40 mg Pantoprazole Sodium (Protonix Iv) 40 mg IVPUSH Q24H [facility] Discontinued Medications Dexamethasone (Dexamethasone) Confirm Administered Dose 4 mg .ROUTE .STK-MED ONE Stop: 11/09/18 15:10 Fentanyl (Sublimaze) Confirm Administered Dose 250 mcg .ROUTE .STK-MED ONE Stop: 11/09/18 15:10 Glycopyrrolate (Robinul) Confirm Administered Dose 1 mg .ROUTE .STK-MED ONE Stop: 11/09/18 15:10 Hydromorphone HCl (Dilaudid) 0.5 mg IVPUSH ONETIME ONE Stop: 11/09/18 13:16 Last Admin: 11/09/18 13:49 Dose: 0.5 mg Hydromorphone HCl (Dilaudid) 0.5 mg IVPUSH ONETIME ONE Stop: 11/09/18 13:59 Last Admin: 11/09/18 14:13 Dose: 0.5 mg Sodium Chloride (Normal Saline) 1,000 mls @ 999 mls/hr IV ASDIRECTED [facility] Last Admin: 11/09/18 13:51 Dose: 999 mls/hr Sodium Chloride (Normal Saline) 1,000 mls @ [facility] Admin: 11/09/18 14:15 Dose: 999 mls/hr Piperacillin Sod/Tazobactam (Sod 4.5 gm/ Sodium Chloride) 100 mls @ 100 mls/hr IV ONETIME ONE Stop: 11/09/18 15:23 Last Admin: 11/09/18 14:58 Dose: 100 mls/hr Sodium Chloride (Normal Saline) 75 mls @ 3.5 mls/sec IV ONETIME ONE Stop: 11/09/18 14:28 Last Admin: 11/09/18 14:45 Dose: 3 mls/sec Sodium Chloride (Normal Saline) Confirm Administered Dose 10 mls @ as directed .ROUTE .STK-MED ONE Stop: 11/09/18 16:22 Lactated Ringer's (Ringers, Lactated) Confirm Administered Dose 1,000 mls @ as directed .ROUTE .STK-MED ONE Stop: 11/09/18 17:33 Dextrose/Water (Dextrose 5% In Water) Confirm Administered Dose 250 mls @ as directed .ROUTE .STK-MED ONE Stop: 11/09/18 18:42 Last Admin: 11/09/18 19:24 Dose: Not Given Aztreonam 1 gm/ Sodium (Chloride) 50 mls @ 100 mls/hr IV Q8H [facility] Lactated Ringer's (Ringers, Lactated) 750 mls @ 999 mls/hr IV ASDIRECTED [facility] Stop: 11/09/18 20:16 Last Admin: 11/09/18 19:43 Dose: 999 mls/hr Iopamidol (Isovue-300 (61%)) 150 ml IV . DIRECTED [facility] Stop: 11/09/18 14:31 Last Admin: 11/09/18 14:45 Dose: 150 ml Meropenem (Merrem) Confirm Administered Dose 1,000 mg .ROUTE .STK-MED ONE Stop: 11/09/18 16:04 Last Admin: 11/09/18 16:45 Dose: 1,000 mg Meropenem (Merrem) Confirm Administered Dose 500 mg .ROUTE .STK-MED ONE Stop: 11/09/18 16:19 Last Admin: 11/09/18 16:45 Dose: 500 mg Meropenem (Merrem) Confirm Administered Dose 500 mg .ROUTE .STK-MED ONE Stop: 11/09/18 16:21 Last Admin: 11/09/18 16:45 Dose: 500 mg Neostigmine Methylsulfate (Neostigmine) Confirm Administered Dose 5 mg .ROUTE .STK-MED ONE Stop: 11/09/18 15:10 Norepinephrine Bitartrate (Levophed) Confirm Administered Dose 4 mg .ROUTE .STK- MED ONE Stop: 11/09/18 18:38 Last Admin: 11/09/18 19:24 Dose: Not Given Ondansetron HCl (Zofran) 4 mg IVPUSH ONETIME ONE Stop: 11/09/18 13:17 Last Admin: 11/09/18 13:48 Dose: 4 mg Ondansetron HCl (Zofran) Confirm Administered Dose 4 mg .ROUTE .STK-MED ONE Stop: 11/09/18 15:10 Phenylephrine HCl (Ian-Synephrine) Confirm Administered Dose 10 mg .ROUTE .STK- MED ONE Stop: 11/09/18 15:55 Propofol (Diprivan 20 Ml) Confirm Administered Dose 200 mg .ROUTE .STK-MED ONE Stop: 11/09/18 15:10 Rocuronium [place] (Zemuron) Confirm Administered Dose 50 mg .ROUTE .STK-MED ONE Stop: 11/09/18 15:10 Rocuronium [place] (Zemuron) Confirm Administered Dose 50 mg .ROUTE .STK-MED ONE Stop: 11/09/18 16:13 Sodium Chloride (Saline Flush) 10 ml FLUSH ONETIME ONE Stop: 11/09/18 14:28 Last Admin: 11/09/18 14:45 Dose: 10 ml Succinylcholine Chloride (Quelicin) Confirm Administered Dose 200 mg .ROUTE .STK -MED ONE Stop: 11/09/18 15:10 - Exam Quality Assessment: Supplemental Oxygen, DVT Prophylaxis General: Alert, Oriented HEENT: Pupils Equal, Pupils Reactive, EOMI, Mucous Membr. Moist/[place] Neck: Supple Lungs: Clear to Auscultation Cardiovascular: Regular Rate, Regular Rhythm GI/Abdominal Exam: Other (open incision with packing) Extremities: Normal Inspection Skin: Warm, Dry, Intact Neurological: No New Focal Deficit Psy/Mental Status: Alert, Normal Affect, Normal Mood - Problem List & Annotations (1) Incarcerated incisional hernia SNOMED Code(s): 141473182 Code(s): K43.0 - INCISIONAL HERNIA WITH OBSTRUCTION, WITHOUT GANGRENE Status: Acute Current Visit: No (2) Status post hernia repair SNOMED Code(s): 83203766733547, 28690940675913 Code(s): Z98.890 - OTHER SPECIFIED POSTPROCEDURAL STATES; Z87.19 - PERSONAL HISTORY OF OTHER DISEASES OF THE DIGESTIVE SYSTEM Status: Acute Current Visit: No Annotation/Comment:: Incisional (3) Sepsis SNOMED Code(s): 34236452 Code(s): A41.9 - SEPSIS, UNSPECIFIED ORGANISM Status: Acute Current Visit : Yes - Problem List Review Problem List Initiated/Reviewed/Updated: Yes - Assessment Assessment:: 1. S/P laparapatoy exploratory with removal of intraabdominal mesh, repair intraabdominal abscess, partial sigmoid colon resection, incisional hernia repair, small bowel resection 2. Sepsis - Plan Plan:: 1. S/P laparapatoy exploratory with removal of intraabdominal mesh, repair intraabdominal abscess, partial sigmoid colon resection, incisional hernia repair, small bowel resection Plan for delayed closure 11/11/18 am. Continue NG, NPO with ice chips. Activity as tolerated. Repeat labs in AM. 2. Sepsis Started on levophed yesterday evening, down to 1 mcg/min this am; BP stable. D5LR @ 100 ml/hr. On Zosyn and Meropenem.
[2018-11-10] MEDS ORDERED: Ropivacaine 57 ML, Dexamethasone 8 MG, EPINEPHrine 0.4 MG, Sodium Chloride 0.9% 20.6 ML NERVRT SCH ×4 (08:00)
[2018-11-10] MEDS: Pantoprazole 40 MG Vial IVPUSH SCH ×2 (08:21→19:28)
[2018-11-10] MEDS: Piperacillin/Tazobactam/Dext 3.375 GM in Premix Bag 1 BAG IV SCH ×3 (09:16→21:34)
[2018-11-10] MEDS: HYDROmorphone/Normal Saline 15 MG/30 ML PCA IV PRN (12:35)
[2018-11-10] MEDS: hydrOXYzine HCl 100 MG/2 ML SDV IM PRN (19:49)
[2018-11-11] MEDS: Meropenem 500 MG in Sodium Chloride 0.9% 50 ML IV SCH ×4 (02:32→20:15)
[2018-11-11] MEDS: Dextrose 5%-Lactated Ringers 1,000 ML IV SCH ×2 (02:34→12:31)
[2018-11-11] MEDS: Piperacillin/Tazobactam/Dext 3.375 GM in Premix Bag 1 BAG IV SCH ×4 (03:08→21:49)
[2018-11-11] MEDS ORDERED: Meropenem 500 MG SDV ONE (06:53)
[2018-11-11] MEDS ORDERED: Bupivacaine 0.5% 50 ML MDV ONE (06:53)
[2018-11-11] MEDS ORDERED: Lidocaine 1% with EPINEPHrine 1:100,000 50 ML MDV ONE (06:53)
[2018-11-11] MEDS ORDERED: Ropivacaine 57 ML, Dexamethasone 8 MG, EPINEPHrine 0.4 MG, Sodium Chloride 0.9% 20.6 ML NERVRT SCH ×4 (08:00)
[2018-11-11] MEDS ORDERED: Propofol 200 MG/20 ML SDV ONE (08:03)
[2018-11-11] MEDS ORDERED: fentaNYL 100 MCG/2 ML SDV ONE (08:03)
[2018-11-11] MEDS: Tamsulosin 0.4 MG Cap.ER PO SCH ×2 (10:14→20:15)
[2018-11-11] MEDS: Acetaminophen 500 MG Tab PO SCH ×3 (10:14→21:49)
[2018-11-11] MEDS: HYDROmorphone/Normal Saline 15 MG/30 ML PCA IV PRN (13:06)
[2018-11-11] MEDS: Pantoprazole 40 MG Vial IVPUSH SCH (20:15)
[2018-11-12] MEDS: Lactated Ringers 1,000 ML IV SCH (00:06)
[2018-11-12] MEDS: Dextrose 5%-Lactated Ringers 1,000 ML IV SCH ×2 (00:06→13:17)
[2018-11-12] MEDS: Meropenem 500 MG in Sodium Chloride 0.9% 50 ML IV SCH ×4 (02:43→21:21)
[2018-11-12] MEDS: Piperacillin/Tazobactam/Dext 3.375 GM in Premix Bag 1 BAG IV SCH (04:18)
[2018-11-12] MEDS: Acetaminophen 500 MG Tab PO SCH ×4 (04:18→21:21)
[2018-11-12] MEDS: HYDROmorphone/Normal Saline 15 MG/30 ML PCA IV PRN (08:23)
[2018-11-12] MEDS: Ciprofloxacin in D5W 200 ML IV SCH ×2 (08:35→19:39)
[2018-11-12] MEDS: Pantoprazole 40 MG Vial IVPUSH SCH (19:31)
[2018-11-12] MEDS: Tamsulosin 0.4 MG Cap.ER PO SCH (20:23)
[2018-11-13] MEDS: Dextrose 5%-Lactated Ringers 1,000 ML IV SCH ×2 (01:29→13:07)
[2018-11-13] MEDS: Acetaminophen 500 MG Tab PO SCH ×4 (03:45→21:09)
[2018-11-13] MEDS: Meropenem 500 MG in Sodium Chloride 0.9% 50 ML IV SCH ×4 (03:46→21:13)
[2018-11-13] MEDS: HYDROmorphone/Normal Saline 15 MG/30 ML PCA IV PRN (06:57)
[2018-11-13] MEDS: Ciprofloxacin in D5W 200 ML IV SCH ×2 (07:49→19:51)
[2018-11-13] MEDS: Ondansetron 4 MG/2 ML SDV IVPUSH PRN ×3 (08:56→21:09)
--- NOTE | 2018-11-13 10:41 | PCM.PN ---
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 He is passing gas but no BM yet. Functional Status: Reports: Ambulating, Urinating, Incentive Spirometry Pain Score: 8 - Review of Systems General: Reports: No Symptoms HEENT: Reports: No Symptoms Pulmonary: Reports: No Symptoms Cardiovascular: Reports: No Symptoms Gastrointestinal: Reports: Abdominal Pain Genitourinary: Reports: No Symptoms Musculoskeletal: Reports: No Symptoms Skin: Reports: No Symptoms Neurological: Reports: No Symptoms Psychiatric: Reports: No Symptoms - Patient Data Vitals - Most Recent: Last Vital Signs Temp 36.9 C 11/13/18 07:00 Pulse 78 11/13/18 07:00 Resp 20 11/13/18 07:00 BP 140/83 11/13/18 07:00 Pulse Ox 92 L 11/13/18 07:21 Weight - Most Recent: 123.06 kg I&O - Last 24 Hours: Intake & Output 11/12/18 11/13/18 11/13/18 22:59 06:59 14:59 Intake Total 1523 1252 250 Output Total 1855 1360 300 Balance -332 -108 -50 Lab Results Last 24 Hours: Laboratory Results - last 24 hr 11/13/18 11/13/18 Range/Units 04:32 04:32 WBC 9.7 (4.5-11.0) K/uL RBC 3.95 L (4.30-5.90) M/uL Hgb 11.6 L (12.0-15.0) g/dL Hct 37.0 L (40.0-54.0) % MCV 94 (80-98) fL MCH 29 (27-31) pg MCHC 31 L (32-36) % Plt Count 205 (150-400) K/uL Sodium 138 L (140-148) mmol/L Potassium 3.7 (3.6-5.2) mmol/L Chloride 100 (100-108) mmol/L Carbon Dioxide 32 (21-32) mmol/L Anion Gap 9.7 (5.0-14.0) mmol/L BUN 22 H (7-18) mg/dL Creatinine 1.0 (0.8-1.3) mg/dL Est Cr Clr Drug Dosing 83.14 mL/min Estimated GFR (MDRD) > 60 (>60) Glucose 96 (74-106) mg/dL Calcium 8.6 (8.5-10.1) mg/dL Phosphorus 3.4 (2.5-4.9) mg/dL Magnesium 1.8 (1.8-2.4) mg/dL Total Bilirubin 0.6 (0.2-1.0) mg/dL AST 51 H (15-37) U/L ALT 40 (12-78) U/L Alkaline Phosphatase 39 L (46-116) U/L Total Protein 6.4 (6.4-8.2) g/dL Albumin 2.3 L (3.4-5.0) g/dL Globulin 4.1 H (2.3-3.5) g/dL Albumin/Globulin Ratio 0.6 L (1.2-2.2) Jonh Results Last 24 Hours: Microbiology 11/09/18 16:42 Anaerobic Culture - Final Abdominal Fluid - Drainage Anaerobic Gram Negative Shoaib 11/09/18 16:40 Anaerobic Culture - Final Abdominal Fluid - Drainage NO GROWTH AFTER 3 DAYS 11/09/18 14:03 Aerobic Blood Culture - Final Blood - Venous Staphylococcus Capitis Anaerobic Blood Culture - Preliminary NO GROWTH AFTER 3 DAYS 11/09/18 14:03 Aerobic Blood Culture - Final Blood - Venous - Lab Draw Viridans Streptococcus Anaerobic Blood Culture - Preliminary NO GROWTH AFTER 3 DAYS 11/09/18 16:42 Gram Stain - Final Abdominal Fluid - Drainage Wound Culture - Final Escherichia Coli Gram Positive Rods 11/09/18 16:40 Gram Stain - Final Abdominal Fluid - Drainage Wound Culture - Final Escherichia Coli Gram Positive Rods Med Orders - Current: Current Medications Acetaminophen (Tylenol Extra Strength) 1,000 mg PO Q6H DWAYNE Last Admin: 11/13/18 03:45 Dose: 1,000 mg Hydromorphone HCl (Dilaudid Client Onboarding Analyst 15 Mg In Ns 30 Ml) 0 mg IV ASDIRECTED PRN; Protocol PRN Reason: [employer]ING [employer]IST PAIN CONTROL Last Admin: 11/13/18 06:57 Dose: 15 mg Hydroxyzine HCl (Vistaril) 100 mg IM Q4H PRN PRN Reason: Pain Last Admin: 11/10/18 19:49 Dose: 100 mg Dextrose/Lactated Ringer's (Dextrose 5%-Lactated Ringers) 1,000 mls @ 100 mls/ hr IV ASDIRECTED [facility] Last Admin: 11/13/18 01:29 Dose: 100 mls/hr Meropenem 500 mg/ Sodium (Chloride) 50 mls @ 100 mls/hr IV Q6H [facility] Last Admin: 11/13/18 09:24 Dose: 100 mls/hr Ciprofloxacin/Dextrose (Cipro In D5w 400 Mg/200 Ml) 200 mls @ 200 mls/hr IV Q12H [facility] Last Admin: 11/13/18 07:49 Dose: 200 mls/hr Labetalol HCl (Normodyne) 5 - 10 mg IVPUSH Q2H PRN; Protocol PRN Reason: Hypertension Melatonin (Melatonin) 6 mg PO BEDTIME PRN PRN Reason: SLEEP Naloxone HCl (Narcan) 0.1 mg IV ASDIRECTED PRN PRN Reason: decreased respiratory rate Ondansetron HCl (Zofran) 4 mg IVPUSH Q4H PRN PRN Reason: Nausea/Vomiting Last Admin: 11/13/18 08:56 Dose: 4 mg Pantoprazole Sodium (Protonix Iv) 40 mg IVPUSH Q24H [facility] Last Admin: 11/12/18 19:31 Dose: 40 mg Tamsulosin HCl (Flomax) 0.4 mg PO BEDTIME [facility] Last Admin: 11/12/18 20:23 Dose: 0.4 mg Discontinued Medications Bupivacaine HCl (Marcaine 0.5%) Confirm Administered Dose 50 ml .ROUTE .STK-MED ONE Stop: 11/11/18 06:54 Last Admin: 11/11/18 09:50 Dose: 20 ml Ropivacaine 57 ml/Dexamethasone 8 mg/Epinephrine HCl 0.4 mg/ Sodium Chloride 20.6 ml 0 ml NERVRT ASDIRECTED [facility] Last Admin: 11/09/18 17:26 Dose: 80 syringe Ropivacaine 57 ml/Dexamethasone 8 mg/Epinephrine HCl 0.4 mg/ Sodium Chloride 20.6 ml 0 ml NERVRT ASDIRECTED [facility] Ropivacaine 57 ml/Dexamethasone 8 mg/Epinephrine HCl 0.4 mg/ Sodium Chloride 20.6 ml 0 ml NERVRT ASDIRECTED [facility] Last Admin: 11/11/18 09:42 Dose: 80 syringe Dexamethasone (Dexamethasone) Confirm Administered Dose 4 mg .ROUTE .STK-MED ONE Stop: 11/09/18 15:10 Fentanyl (Sublimaze) Confirm Administered Dose 250 mcg .ROUTE .STK-MED ONE Stop: 11/09/18 15:10 Fentanyl (Sublimaze) Confirm Administered Dose 100 mcg .ROUTE .STK-MED ONE Stop: 11/11/18 08:04 Glycopyrrolate (Robinul) Confirm Administered Dose 1 mg .ROUTE .STK-MED ONE Stop: 11/09/18 15:10 Hydromorphone HCl (Dilaudid) 0.5 mg IVPUSH ONETIME ONE Stop: 11/09/18 13:16 Last Admin: 11/09/18 13:49 Dose: 0.5 mg Hydromorphone HCl (Dilaudid) 0.5 mg IVPUSH ONETIME ONE Stop: 11/09/18 13:59 Last Admin: 11/09/18 14:13 Dose: 0.5 mg Sodium Chloride (Normal Saline) 1,000 mls @ 999 mls/hr IV ASDIRECTED [facility] Last Admin: 11/09/18 13:51 Dose: 999 mls/hr Sodium Chloride (Normal Saline) 1,000 mls @ 999 mls/hr IV ASDIRECTED [facility] Last Admin: 11/09/18 14:15 Dose: 999 mls/hr Piperacillin Sod/Tazobactam (Sod 4.5 gm/ Sodium Chloride) 100 mls @ 100 mls/hr IV ONETIME ONE Stop: 11/09/18 15:23 Last Admin: 11/09/18 14:58 Dose: 100 mls/hr Sodium Chloride (Normal Saline) 75 mls @ 3.5 mls/sec IV ONETIME ONE Stop: 11/09/18 14:28 Last Admin: 11/09/18 14:45 Dose: 3 mls/sec Sodium Chloride (Normal Saline) Confirm Administered Dose 10 mls @ as directed .ROUTE .STK-MED ONE Stop: 11/09/18 16:22 Lactated Ringer's (Ringers, Lactated) Confirm Administered Dose 1,000 mls @ as directed .ROUTE .STK-MED ONE Stop: 11/09/18 17:33 Dextrose/Water (Dextrose 5% In Water) Confirm Administered Dose 250 mls @ as directed .ROUTE .STK-MED ONE Stop: 11/09/18 18:42 Last Admin: 11/09/18 19:24 Dose: Not Given Meropenem 500 mg/ Sodium (Chloride) 50 mls @ 100 mls/hr IV Q6H [facility] Last Admin: 11/10/18 01:00 Dose: 100 mls/hr Norepinephrine Bitartrate 4 mg (/ Dextrose/Water) 250 mls @ 3.75 mls/hr IV TITRATE DWAYNE; Protocol Last Titration: 11/10/18 09:16 Dose: 0 mcg/min, 0 mls/hr Aztreonam 1 gm/ Sodium (Chloride) 50 mls @ 100 mls/hr IV Q8H DWAYNE Lactated Ringer's (Ringers, Lactated) 1,000 mls @ 100 mls/hr IV ASDIRECTED [facility] Last Admin: 11/10/18 06:24 Dose: 100 mls/hr Lactated Ringer's (Ringers, Lactated) 750 mls @ 999 mls/hr IV ASDIRECTED [facility] Stop: 11/09/18 20:16 Last Admin: 11/09/18 19:43 Dose: 999 mls/hr Piperacillin Sod/Tazobactam (Sod 3.375 gm/ Sodium Chloride) 50 mls @ 100 mls/ hr IV Q6H [facility] Last Admin: 11/10/18 02:41 Dose: 100 mls/hr Piperacillin/Tazobactam/ (Dextrose 3.375 gm/ Premix) 50 mls @ 100 mls/hr IV Q6H [facility] Last Admin: 11/12/18 04:18 Dose: 100 mls/hr Lactated Ringer's (Ringers, Lactated) 1,000 mls @ 25 mls/hr IV ASDIRECTED [facility] Last Admin: 11/12/18 00:06 Dose: 25 mls/hr Iopamidol (Isovue-300 (61%)) 150 ml IV . DIRECTED DWAYNE Stop: 11/09/18 14:31 Last Admin: 11/09/18 14:45 Dose: 150 ml Lidocaine/Epinephrine (Xylocaine 1% With Epinephrine 1:100,000) Confirm Administered Dose 50 ml .ROUTE .STK-MED ONE Stop: 11/11/18 06:54 Last Admin: 11/11/18 09:51 Dose: 20 ml Meropenem (Merrem) Confirm Administered Dose 1,000 mg .ROUTE .STK-MED ONE Stop: 11/09/18 16:04 Last Admin: 11/09/18 16:45 Dose: 1,000 mg Meropenem (Merrem) Confirm Administered Dose 500 mg .ROUTE .STK-MED ONE Stop: 11/09/18 16:19 Last Admin: 11/09/18 16:45 Dose: 500 mg Meropenem (Merrem) Confirm Administered Dose 500 mg .ROUTE .STK-MED ONE Stop: 11/09/18 16:21 Last Admin: 11/09/18 16:45 Dose: 500 mg Meropenem (Merrem) Confirm Administered Dose 500 mg .ROUTE .STK-MED ONE Stop: 11/11/18 06:54 Last Admin: 11/11/18 09:50 Dose: 500 mg Neostigmine Methylsulfate (Neostigmine) Confirm Administered Dose 5 mg .ROUTE .STK-MED ONE Stop: 11/09/18 15:10 Norepinephrine Bitartrate (Levophed) Confirm Administered Dose 4 mg .ROUTE .STK- MED ONE Stop: 11/09/18 18:38 Last Admin: 11/09/18 19:24 Dose: Not Given Ondansetron HCl (Zofran) 4 mg IVPUSH ONETIME ONE Stop: 11/09/18 13:17 Last Admin: 11/09/18 13:48 Dose: 4 mg Ondansetron HCl (Zofran) Confirm Administered Dose 4 mg .ROUTE .STK-MED ONE Stop: 11/09/18 15:10 Pantoprazole Sodium (Protonix Iv) 40 mg IVPUSH Q12H DWAYNE Stop: 11/10/18 19:31 Last Admin: 11/10/18 19:28 Dose: 40 mg Phenylephrine HCl (Ian-Synephrine) Confirm Administered Dose 10 mg .ROUTE .STK- MED ONE Stop: 11/09/18 15:55 Propofol (Diprivan 20 Ml) Confirm Administered Dose 200 mg .ROUTE .STK-MED ONE Stop: 11/09/18 15:10 Propofol (Diprivan 20 Ml) Confirm Administered Dose 200 mg .ROUTE .STK-MED ONE Stop: 11/11/18 08:04 Rocuronium [place] (Zemuron) Confirm Administered Dose 50 mg .ROUTE .STK-MED ONE Stop: 11/09/18 15:10 Rocuronium [place] (Zemuron) Confirm Administered Dose 50 mg .ROUTE .STK-MED ONE Stop: 11/09/18 16:13 Sodium Chloride (Saline Flush) 10 ml FLUSH ONETIME ONE Stop: 11/09/18 14:28 Last Admin: 11/09/18 14:45 Dose: 10 ml Succinylcholine Chloride (Quelicin) Confirm Administered Dose 200 mg .ROUTE .STK -MED ONE Stop: 11/09/18 15:10 - Exam Quality Assessment: Supplemental Oxygen, DVT Prophylaxis General: Alert, Oriented HEENT: Pupils Equal, Pupils Reactive, EOMI, Mucous Membr. Moist/[place] Neck: Supple Lungs: Clear to Auscultation, Normal Respiratory Effort Cardiovascular: Regular Rate, Regular Rhythm GI/Abdominal Exam: Normal Bowel Sounds, Soft Extremities: Normal Inspection, Normal Range of Motion, Non-Tender, No Pedal Edema, Normal Capillary Refill Skin: Warm, Dry, Intact Wound/Incisions: Dressing Dry and Intact Neurological: No New Focal Deficit Psy/Mental Status: Alert - Problem List & Annotations (1) Incarcerated incisional hernia SNOMED Code(s): 146524977 Code(s): K43.0 - INCISIONAL HERNIA WITH OBSTRUCTION, WITHOUT GANGRENE Status: Acute Current Visit: No (2) Status post hernia repair SNOMED Code(s): 94085592819077, 21832450763965 Code(s): Z98.890 - OTHER SPECIFIED POSTPROCEDURAL STATES; Z87.19 - PERSONAL HISTORY OF OTHER DISEASES OF THE DIGESTIVE SYSTEM Status: Acute Current Visit: No Annotation/Comment:: Incisional (3) Sepsis SNOMED Code(s): 53783475 Code(s): A41.9 - SEPSIS, UNSPECIFIED ORGANISM Status: Acute Current Visit : Yes - Problem List Review Problem List Initiated/Reviewed/Updated: Yes - Assessment Assessment:: 1. S/P laparotomy exploratory with removal of intraabdominal mesh, repair intraabdominal abscess, partial sigmoid colon resection, incisional hernia repair, small bowel resection 2. Sepsis. - Plan Plan:: 1. S/P laparapatoy exploratory with removal of intraabdominal mesh, repair intraabdominal abscess, partial sigmoid colon resection, incisional hernia repair, small bowel resection Delayed closure on 11/11/18. Continue NPO with ice chips. Activity as tolerated. No bowel stimulation. 2. Sepsis Pt on Cipro and Meropenem. D5LR @ 100 ml/hr
--- NOTE | 2018-11-13 13:55 | PN ---
DATE OF SERVICE: 11/10/2018 The patient stabilized overnight. Initially, coming out of the operating room, he was somewhat hypotensive, and we needed to give him a liter of IV fluid as well as norepinephrine infusion. This was up to around 3 to 4 mcg/minute at one point postoperatively. He has now weaned down to 1 mcg/minute and urine output and vital signs have now stabilized quite nicely. He did have positive blood cultures for gram-positive cocci. The patient is presently on meropenem and Zosyn, which should likely cover the enteric Gram positives, and we will await the sensitivities before making any additional changes in terms of antibiotics. Otherwise, the NG tube will be in place for today, and we will plan on delayed primary closure of abdominal incision tomorrow and probably get the NG tube out at that time. However, the Cha catheter we will leave in to monitor urine output as well today. Labs show a white count of 19,800 as one would expect, hemoglobin is 12. Potassium is somewhat up at 5.6, we will need to watch that, but otherwise he is not receiving any exogenous potassium, and albumin is up slightly at 1.2. Overall appears to be improving. He did have a significant septic event and as noted positive blood cultures, and we will need to continue some ongoing IV antibiotics for a period of time. We will plan a delayed primary closure of the abdominal incision tomorrow. Sloan Ibarra MD /[id number]
--- NOTE | 2018-11-13 14:10 | OR ---
DATE OF PROCEDURE: 11/11/2018 PREOPERATIVE DIAGNOSIS: Open abdominal incision. POSTOPERATIVE DIAGNOSIS: Open abdominal incision. OPERATIVE PROCEDURE: Delayed primary closure of open abdominal incision. ANESTHESIA: IV sedation plus local. INDICATION FOR PROCEDURE: The patient is 48 hours status post an open laparotomy for colon perforation. At the time of the original surgery, the skin and subcutaneous tissue were felt to be high risk for wound infection and were therefore left open. Plan is to proceed with a delayed primary closure at this time. Potential risks including bleeding and infection were reviewed, and the patient wishes to proceed. PROCEDURE IN DETAIL: The patient was taken to the operating room and placed in a semi- sitting position. IV sedation was administered, after which the operative dressing was taken down and the wound inspected and found to be clean. The wound was then prepped and draped. Using ultrasound guidance, bilateral transversus abdominis plane blocks focussed across the mid and lower abdomen were placed and the wound anesthetized with 1% lidocaine mixed with Marcaine. An additional 10-Persian round Luis Daniel-Baumann drain was placed near the superior aspect of the incision and draped across that area where it was sutured with some 3- 0 Vicryl stitch. The incision was then closed with some 3-0 and 4-0 Vicryl stitches deep and zarina. Dressing was applied. The patient was taken to the recovery room in satisfactory condition. Sloan Ibarra MD /[id number]
[2018-11-13] MEDS: Pantoprazole 40 MG Vial IVPUSH SCH (19:44)
[2018-11-13] MEDS: Tamsulosin 0.4 MG Cap.ER PO SCH (21:09)
[2018-11-14] MEDS: Dextrose 5%-Lactated Ringers 1,000 ML IV SCH ×2 (00:32→13:12)
[2018-11-14] MEDS: Meropenem 500 MG in Sodium Chloride 0.9% 50 ML IV SCH ×4 (02:47→20:18)
[2018-11-14] MEDS: Acetaminophen 500 MG Tab PO SCH ×4 (03:01→21:26)
--- NOTE | 2018-11-14 07:05 | PCM.PN ---
- General Info Date of Service: 11/14/18 Admission Dx/Problem (Free Text): Acute Abdominal Pain Subjective Update: Pt is feeling somewhat better this am. Some nausea overnight; worse with movement. No BM but is passing gas. Has been up and walking. Functional Status: Reports: Pain Controlled, Ambulating, Urinating, Incentive Spirometry - Review of Systems General: Reports: No Symptoms HEENT: Reports: No Symptoms Pulmonary: Reports: No Symptoms Cardiovascular: Reports: No Symptoms Gastrointestinal: Reports: Abdominal Pain Genitourinary: Reports: No Symptoms Musculoskeletal: Reports: No Symptoms Skin: Reports: No Symptoms Neurological: Reports: No Symptoms Psychiatric: Reports: No Symptoms - Patient Data Vitals - Most Recent: Last Vital Signs Temp 36.4 C 11/14/18 02:41 Pulse 71 11/14/18 02:41 Resp 16 11/14/18 02:41 BP 148/75 H 11/14/18 02:41 Pulse Ox 93 L 11/14/18 06:13 Weight - Most Recent: 123.06 kg I&O - Last 24 Hours: Intake & Output 11/13/18 11/14/18 11/14/18 22:59 06:59 14:59 Intake Total 1334 1091 Output Total 2040 1390 Balance -706 -299 Lab Results Last 24 Hours: Laboratory Results - last 24 hr 11/14/18 11/14/18 Range/Units 04:45 04:45 WBC 7.1 (4.5-11.0) K/uL RBC 4.00 L (4.30-5.90) M/uL Hgb 11.7 L (12.0-15.0) g/dL Hct 36.7 L (40.0-54.0) % MCV 92 (80-98) fL MCH 29 (27-31) pg MCHC 32 (32-36) % Plt Count 206 (150-400) K/uL Sodium 139 L (140-148) mmol/L Potassium 4.0 (3.6-5.2) mmol/L Chloride 101 (100-108) mmol/L Carbon Dioxide 33 H (21-32) mmol/L Anion Gap 9.0 (5.0-14.0) mmol/L BUN 16 (7-18) mg/dL Creatinine 1.0 (0.8-1.3) mg/dL Est Cr Clr Drug Dosing 83.14 mL/min Estimated GFR (MDRD) > 60 (>60) Glucose 104 (74-106) mg/dL Calcium 8.4 L (8.5-10.1) mg/dL Phosphorus 4.8 (2.5-4.9) mg/dL Magnesium 1.7 L (1.8-2.4) mg/dL Total Bilirubin 1.0 D (0.2-1.0) mg/dL AST 46 H (15-37) U/L ALT 45 (12-78) U/L Alkaline Phosphatase 40 L (46-116) U/L Total Protein 5.8 L (6.4-8.2) g/dL Albumin 2.1 L (3.4-5.0) g/dL Globulin 3.7 H (2.3-3.5) g/dL Albumin/Globulin Ratio 0.6 L (1.2-2.2) Jonh Results Last 24 Hours: Microbiology 11/09/18 14:03 Aerobic Blood Culture - Final Blood - Venous - Lab Draw Viridans Streptococcus Anaerobic Blood Culture - Preliminary NO GROWTH AFTER 4 DAYS 11/09/18 14:03 Aerobic Blood Culture - Final Blood - Venous Staphylococcus Capitis Anaerobic Blood Culture - Preliminary NO GROWTH AFTER 4 DAYS 11/09/18 16:42 Anaerobic Culture - Final Abdominal Fluid - Drainage Anaerobic Gram Negative Shoaib 11/09/18 16:40 Anaerobic Culture - Final Abdominal Fluid - Drainage NO GROWTH AFTER 3 DAYS Med Orders - Current: Current Medications Acetaminophen (Tylenol Extra Strength) 1,000 mg PO Q6H [facility] Last Admin: 11/14/18 03:01 Dose: 1,000 mg Hydromorphone HCl (Dilaudid Meat Selector 15 Mg In Ns 30 Ml) 0 mg IV ASDIRECTED PRN; Protocol 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 Last Admin: 11/13/18 06:57 Dose: 15 mg Hydroxyzine HCl (Vistaril) 100 mg IM Q4H PRN PRN Reason: Pain Last Admin: 11/10/18 19:49 Dose: 100 mg Dextrose/Lactated Ringer's (Dextrose 5%-Lactated Ringers) 1,000 mls @ 100 mls/ hr IV ASDIRECTED DWAYNE Last Admin: 11/14/18 00:32 Dose: 100 mls/hr Meropenem 500 mg/ Sodium (Chloride) 50 mls @ 100 mls/hr IV Q6H [facility] Last Admin: 11/14/18 02:47 Dose: 100 mls/hr Ciprofloxacin/Dextrose (Cipro In D5w 400 Mg/200 Ml) 200 mls @ 200 mls/hr IV Q12H [facility] Last Admin: 11/13/18 19:51 Dose: 200 mls/hr Labetalol HCl (Normodyne) 5 - 10 mg IVPUSH Q2H PRN; Protocol PRN Reason: Hypertension Melatonin (Melatonin) 6 mg PO BEDTIME PRN PRN Reason: SLEEP Naloxone HCl (Narcan) 0.1 mg IV ASDIRECTED PRN PRN Reason: decreased respiratory rate Ondansetron HCl (Zofran) 4 mg IVPUSH Q4H PRN PRN Reason: Nausea/Vomiting Last Admin: 11/13/18 21:09 Dose: 4 mg Pantoprazole Sodium (Protonix Iv) 40 mg IVPUSH Q24H [facility] Last Admin: 11/13/18 19:44 Dose: 40 mg Tamsulosin HCl (Flomax) 0.4 mg PO BEDTIME [facility] Last Admin: 11/13/18 21:09 Dose: 0.4 mg Discontinued Medications Bupivacaine HCl (Marcaine 0.5%) Confirm Administered Dose 50 ml .ROUTE .STK-MED ONE Stop: 11/11/18 06:54 Last Admin: 11/11/18 09:50 Dose: 20 ml Ropivacaine 57 ml/Dexamethasone 8 mg/Epinephrine HCl 0.4 mg/ Sodium Chloride 20.6 ml 0 ml NERVRT ASDIRECTED [facility] Last Admin: 11/09/18 17:26 Dose: 80 syringe Ropivacaine 57 ml/Dexamethasone 8 mg/Epinephrine HCl 0.4 mg/ Sodium Chloride 20.6 ml 0 ml NERVRT ASDIRECTED [facility] Ropivacaine 57 ml/Dexamethasone 8 mg/Epinephrine HCl 0.4 mg/ Sodium Chloride 20.6 ml 0 ml NERVRT ASDIRECTED [facility] Last Admin: 11/11/18 09:42 Dose: 80 syringe Dexamethasone (Dexamethasone) Confirm Administered Dose 4 mg .ROUTE .STK-MED ONE Stop: 11/09/18 15:10 Fentanyl (Sublimaze) Confirm Administered Dose 250 mcg .ROUTE .STK-MED ONE Stop: 11/09/18 15:10 Fentanyl (Sublimaze) Confirm Administered Dose 100 mcg .ROUTE .STK-MED ONE Stop: 11/11/18 08:04 Glycopyrrolate (Robinul) Confirm Administered Dose 1 mg .ROUTE .STK-MED ONE Stop: 11/09/18 15:10 Hydromorphone HCl (Dilaudid) 0.5 mg IVPUSH ONETIME ONE Stop: 11/09/18 13:16 Last Admin: 11/09/18 13:49 Dose: 0.5 mg Hydromorphone HCl (Dilaudid) 0.5 mg IVPUSH ONETIME ONE Stop: 11/09/18 13:59 Last Admin: 11/09/18 14:13 Dose: 0.5 mg Sodium Chloride (Normal Saline) 1,000 mls @ 999 mls/hr IV ASDIRECTED [facility] Last Admin: 11/09/18 13:51 Dose: 999 mls/hr Sodium Chloride (Normal Saline) 1,000 mls @ 999 mls/hr IV ASDIRECTED [facility] Last Admin: 11/09/18 14:15 Dose: 999 mls/hr Piperacillin Sod/Tazobactam (Sod 4.5 gm/ Sodium Chloride) 100 mls @ 100 mls/hr IV ONETIME ONE Stop: 11/09/18 15:23 Last Admin: 11/09/18 14:58 Dose: 100 mls/hr Sodium Chloride (Normal Saline) 75 mls @ 3.5 mls/sec IV ONETIME ONE Stop: 11/09/18 14:28 Last Admin: 11/09/18 14:45 Dose: 3 mls/sec Sodium Chloride (Normal Saline) Confirm Administered Dose 10 mls @ as directed .ROUTE .STK-MED ONE Stop: 11/09/18 16:22 Lactated Ringer's (Ringers, Lactated) Confirm Administered Dose 1,000 mls @ as directed .ROUTE .STK-MED ONE Stop: 11/09/18 17:33 Dextrose/Water (Dextrose 5% In Water) Confirm Administered Dose 250 mls @ as directed .ROUTE .STK-MED ONE Stop: 11/09/18 18:42 Last Admin: 11/09/18 19:24 Dose: Not Given Meropenem 500 mg/ Sodium (Chloride) 50 mls @ 100 mls/hr IV Q6H [facility] Last Admin: 11/10/18 01:00 Dose: 100 mls/hr Norepinephrine Bitartrate 4 mg (/ Dextrose/Water) 250 mls @ 3.75 mls/hr IV TITRATE DWAYNE; Protocol Last Titration: 11/10/18 09:16 Dose: 0 mcg/min, 0 mls/hr Aztreonam 1 gm/ Sodium (Chloride) 50 mls @ 100 mls/hr IV Q8H DWAYNE Lactated Ringer's (Ringers, Lactated) 1,000 mls @ 100 mls/hr IV ASDIRECTED DWAYNE Last Admin: 11/10/18 06:24 Dose: 100 mls/hr Lactated Ringer's (Ringers, Lactated) 750 mls @ 999 mls/hr IV ASDIRECTED DWAYNE Stop: 11/09/18 20:16 Last Admin: 11/09/18 19:43 Dose: 999 mls/hr Piperacillin Sod/Tazobactam (Sod 3.375 gm/ Sodium Chloride) 50 mls @ 100 mls/ hr IV Q6H DWAYNE Last Admin: 11/10/18 02:41 Dose: 100 mls/hr Piperacillin/Tazobactam/ (Dextrose 3.375 gm/ Premix) 50 mls @ 100 mls/hr IV Q6H DWAYNE Last Admin: 11/12/18 04:18 Dose: 100 mls/hr Lactated Ringer's (Ringers, Lactated) 1,000 mls @ 25 mls/hr IV ASDIRECTED DWAYNE Last Admin: 11/12/18 00:06 Dose: 25 mls/hr Iopamidol (Isovue-300 (61%)) 150 ml IV . DIRECTED DWAYNE Stop: 11/09/18 14:31 Last Admin: 11/09/18 14:45 Dose: 150 ml Lidocaine/Epinephrine (Xylocaine 1% With Epinephrine 1:100,000) Confirm Administered Dose 50 ml .ROUTE .STK-MED ONE Stop: 11/11/18 06:54 Last Admin: 11/11/18 09:51 Dose: 20 ml Meropenem (Merrem) Confirm Administered Dose 1,000 mg .ROUTE .STK-MED ONE Stop: 11/09/18 16:04 Last Admin: 11/09/18 16:45 Dose: 1,000 mg Meropenem (Merrem) Confirm Administered Dose 500 mg .ROUTE .STK-MED ONE Stop: 11/09/18 16:19 Last Admin: 11/09/18 16:45 Dose: 500 mg Meropenem (Merrem) Confirm Administered Dose 500 mg .ROUTE .STK-MED ONE Stop: 11/09/18 16:21 Last Admin: 11/09/18 16:45 Dose: 500 mg Meropenem (Merrem) Confirm Administered Dose 500 mg .ROUTE .STK-MED ONE Stop: 11/11/18 06:54 Last Admin: 11/11/18 09:50 Dose: 500 mg Neostigmine Methylsulfate (Neostigmine) Confirm Administered Dose 5 mg .ROUTE .STK-MED ONE Stop: 11/09/18 15:10 Norepinephrine Bitartrate (Levophed) Confirm Administered Dose 4 mg .ROUTE .STK- MED ONE Stop: 11/09/18 18:38 Last Admin: 11/09/18 19:24 Dose: Not Given Ondansetron HCl (Zofran) 4 mg IVPUSH ONETIME ONE Stop: 11/09/18 13:17 Last Admin: 11/09/18 13:48 Dose: 4 mg Ondansetron HCl (Zofran) Confirm Administered Dose 4 mg .ROUTE .STK-MED ONE Stop: 11/09/18 15:10 Pantoprazole Sodium (Protonix Iv) 40 mg IVPUSH Q12H DWAYNE Stop: 11/10/18 19:31 Last Admin: 11/10/18 19:28 Dose: 40 mg Phenylephrine HCl (Ian-Synephrine) Confirm Administered Dose 10 mg .ROUTE .STK- MED ONE Stop: 11/09/18 15:55 Propofol (Diprivan 20 Ml) Confirm Administered Dose 200 mg .ROUTE .STK-MED ONE Stop: 11/09/18 15:10 Propofol (Diprivan 20 Ml) Confirm Administered Dose 200 mg .ROUTE .STK-MED ONE Stop: 11/11/18 08:04 Rocuronium [place] (Zemuron) Confirm Administered Dose 50 mg .ROUTE .STK-MED ONE Stop: 11/09/18 15:10 Rocuronium [place] (Zemuron) Confirm Administered Dose 50 mg .ROUTE .STK-MED ONE Stop: 11/09/18 16:13 Sodium Chloride (Saline Flush) 10 ml FLUSH ONETIME ONE Stop: 11/09/18 14:28 Last Admin: 11/09/18 14:45 Dose: 10 ml Succinylcholine Chloride (Quelicin) Confirm Administered Dose 200 mg .ROUTE .[facility] ONE Stop: 11/09/18 15:10 - Exam Quality Assessment: DVT Prophylaxis General: Alert, Oriented HEENT: Pupils Equal, Pupils Reactive, EOMI, Mucous Membr. Moist/[place] Neck: Supple Lungs: Clear to Auscultation, Normal Respiratory Effort Cardiovascular: Regular Rate, Regular Rhythm GI/Abdominal Exam: Soft, Tender Extremities: Normal Inspection, Normal Range of Motion, Non-Tender, No Pedal Edema, Normal Capillary Refill Skin: Warm, Dry, Intact Wound/Incisions: Healing Well Neurological: No New Focal Deficit Psy/Mental Status: Alert, Normal Affect, Normal Mood - Problem List & Annotations (1) Incarcerated incisional hernia SNOMED Code(s): 791263178 Code(s): K43.0 - INCISIONAL HERNIA WITH OBSTRUCTION, WITHOUT GANGRENE Status: Acute Current Visit: No (2) Status post hernia repair SNOMED Code(s): 00811175033667, 72311838100816 Code(s): Z98.890 - OTHER SPECIFIED POSTPROCEDURAL STATES; Z87.19 - PERSONAL HISTORY OF OTHER DISEASES OF THE DIGESTIVE SYSTEM Status: Acute Current Visit: No Annotation/Comment:: Incisional (3) Sepsis SNOMED Code(s): 27539180 Code(s): A41.9 - SEPSIS, UNSPECIFIED ORGANISM Status: Acute Current Visit : Yes - Problem List Review Problem List Initiated/Reviewed/Updated: Yes - Assessment Assessment:: 1. S/P laparotomy exploratory with removal of intraabdominal mesh, repair intraabdominal abscess, partial sigmoid colon resection, incisional hernia repair, small bowel resection 2. Sepsis. - Plan Plan:: 1. S/P laparotomy exploratory with removal of intraabdominal mesh, repair intraabdominal abscess, partial sigmoid colon resection, incisional hernia repair, small bowel resection Delayed closure on 11/11/18. Advance to clear liquids; instructed to take it slow. Activity as tolerated. No bowel stimulation. Will add scopolamine patch to help with nausea. 2. Sepsis Afebrile, WBC 7.1. Pt on Cipro and Meropenem. D5LR @ 100 ml/hr
[2018-11-14] MEDS ORDERED: Scopolamine 1.5 MG Transdermal Patch TOP ONE (07:45)
[2018-11-14] MEDS: Ciprofloxacin in D5W 200 ML IV SCH ×2 (08:47→19:08)
--- NOTE | 2018-11-14 10:42 | PN ---
DATE OF SERVICE: 11/11/2018 The patient had a single elevated temperature early this morning, elevated at 101, and this may be pulmonary related. He obviously needs to be working a little bit more with regard to pulmonary toilet. The NG output has been negligible. We will discontinue that today. The patient underwent a delayed primary closure satisfactorily. We will leave the Cha catheter in for today, as he did have some problems with urinary retention by history, and we will give him Flomax dose this morning, along with a dose at bedtime. Try getting the Cha out tomorrow. Otherwise, he is off any pressors. White count is down somewhat, as is his potassium, and we are awaiting the sensitivities on the intraoperative and blood cultures. We will leave him on the present antibiotics until those cultures and sensitivities again are coming in. Sloan Ibarra MD /[id number]
--- NOTE | 2018-11-14 10:51 | PN ---
DATE OF SERVICE: 11/12/2018 The patient has been afebrile with stable vital signs. Urine output has been satisfactory, and the pain control appears to be reasonably good at this point. He has had no nausea. No flatus or bowel movement as of yet, as one would expect. The labs show white count creeping down to 13,600, and hemoglobin is stable at 11.6. Chemistries otherwise are unremarkable. The cultures came back growing E. coli, which is sensitive to everything but a couple of the cephalosporins on the panel, and the blood cultures show Staph capitis, which is sensitive to everything on that panel. The patient is presently on Zosyn and meropenem, which should be covering the gram-negative anaerobes well, and we will add Cipro to the equation as well at this point, which would specifically cover the Staph. Otherwise, we will transfer the patient to the second floor today and continue to work with pulmonary toilet, which has improved over the last 24 hours. Sloan Ibarra MD /[id number]
[2018-11-14] MEDS: SCOPOLAMINE PATCH CHECK TOP SCH (11:03)
--- NOTE | 2018-11-14 11:03 | ER ---
DATE OF SERVICE: 11/09/2018 The patient is 2 days status post laparoscopic repair of an incisional hernia. During that procedure, 2 areas of small bowel had minor deserosalizations, which were repaired, but without full enterotomies. There was some large bowel dissection off of the abdominal wall at the lower end of where the mesh was eventually placed for the repair of the incisional hernia as well. The patient was doing well until, on discharge this morning on the way home, developed an acute abdominal pain. He presented to the emergency room with quite severe midabdominal pain. At this point, labs are not overly remarkable, but he did present initially with a blood pressure as low as in the 70s systolic range. This has now improved with a liter of IV fluid on board. CT scan shows some postoperative changes but no obvious evidence of bowel injury or other acute problems such as bleeding. The extent of the patient's discomfort, however, I think argues against any watchful waiting approach. This, in addition to instability of the vital signs and the slight elevation in the lactate, I think all indicate there is a significant likelihood there is a surgical problem such as possible visceral injury that was not identified at the time of the laparoscopic hernia repair. Plan will be to proceed with an exploratory laparotomy. The patient had received Zosyn IV, and the plan will be to proceed with a laparotomy and procedures as indicated, including possible bowel resection. If there is gross contamination in the mesh that was placed 48 hours ago, it would need to be removed. Potential risks per se including bleeding, infection, leaks from various GI tract closures, possible need for colostomy if colon injury is identified either in the immediate operative phase or if colon resection was undertaken and subsequently developed, as well as possibility of cardiopulmonary, septic, or hemorrhagic complications leading to were discussed with the patient. One of his sons was present initially, and both were present for discussion immediately preoperatively as well, and they were filled in on the potential risks, and all involved wished to proceed. The surgery will be undertaken shortly. Sloan Ibarra MD /[id number]
--- NOTE | 2018-11-14 11:21 | OR ---
DATE OF PROCEDURE: 11/09/2018 PREOPERATIVE DIAGNOSIS: Acute abdomen. POSTOPERATIVE DIAGNOSES: 1. Perforated diverticulum, distal sigmoid colon with contaminated intraperitoneal mesh. 2. A segment of small bowel deserosalization, status post takedown of adhesions. 3. Focal intraabdominal abscess. 4. Recurrent incisional hernia. OPERATIVE PROCEDURES: Exploratory laparotomy with: 1. Drainage of focal intraabdominal abscess (98852). 2. Rectosigmoid resection with coloproctostomy (25457). 3. Small bowel resection (73560). 4. Removal of contaminated intraperitoneal mesh (36571). 5. Repair of recurrent incisional hernia (01375). ANESTHESIA: General. SURGEON: Sloan Ibarra MD LOW VISION THERAPIST: DEBBI Gonzalez. INDICATIONS FOR PROCEDURE: Please see emergency room note dictated preoperatively. DETAILS OF PROCEDURE: The patient was taken to the operating room, and after general endotracheal anesthesia was induced, a Cha catheter was inserted and the abdomen prepped and draped. The patient from the time of onset of the anesthesia throughout the procedure remained hemodynamically stable. A midline incision was made from roughly a handsbreadth above the umbilicus and eventually down to the level of the pubis. This was carried down through the full-thickness of the abdominal wall. Initially upon entering the peritoneal cavity, there was only a small amount of more or less serous-appearing fluid. As one carried the incision further downward, there appeared to be some GI tract content present beneath the mesh. The mesh was then pulled back and then removed. The mesh at this point had been fixed 48 hours ago with absorbable tacking screws, so the mesh could easily simply be pulled off of the abdominal wall. Under that, there was a focal area of abscess formation, and cultures were obtained. This contained some slightly purulent fluid containing some GI content. The obvious source at this point was in the area of the distal sigmoid colon. This was an area that had been dissected off of the abdominal wall. Both myself and the security tech, who was also on the original case, remembered viewing this dissection but did not seeing any areas of deserosalization. There was quite a bit in the way of diverticular disease in that area, and I suspect there was a weak spot created during the course of the dissection over one of the diverticula that, when the patient was developing some crampy pain as his GI tract function returned, resulted in perforation of that location. At any rate, this area was cultured and the area evacuated. The distal sigmoid colon and proximal rectum were then divided, and this was accomplished with LEONOR staplers. Underlying mesentery was also then divided with LEONOR zarina and the specimen delivered from the field. This was done initially in order to eliminate any additional spill. In order to reestablish GI tract continuity, some additional dissection of the adhesions between the large and small bowel and lower abdomen and pelvis was required at this point. During the course of the dissection, the 2 areas that had been slightly deserosalized at the time of the original procedure were identified, and these were both found to be intact. One additional area of more deserosalization occurred during the course of the dissection in the pelvis. This segment of small bowel was then resected, being divided proximally and distally with LEONOR staplers, as was the underlying mesentery. GI tract continuity was accomplished with an internal firing of the LEONOR 60 mm aquino load and the common opening with a purple load. The angles were anastomosed and mesenteric defect approximated with some 3-0 Vicryl stitch. Once the pelvic dissection was completed, the peritoneal reflection of the descending colon and proximal sigmoid colon was divided, allowing further mobilization of those structures toward the pelvis. This allowed then an alignment of the upper rectum to the distal sigmoid colon in a tension-free manner, and a [id number] anastomosis was then accomplished with an internal firing of the Endo LEONOR 60 mm stapler, followed by a second firing of the 30 mm stapler; these with aquino loads, the common opening was then closed with purple loads, the angles anastomosed, and the mesenteric defect at the coloproctostomy was then reinforced with some 3-0 Vicryl seromuscular stitch. Both anastomoses were subsequently covered with fibrin sealant as well. After the initial control of the spill, the patient had 3 L of meropenem-containing saline solution used to irrigate the abdomen until all areas were clear. Two additional liters of meropenem-containing saline solution were then used for irrigation as well, and at that point, all areas of the abdomen and pelvis appeared to be well washed out. Two Luis Daniel- Baumann drains were then placed one on each side of the abdomen along the colic gutters and from there into the pelvis and, at that point, the midline fascia approximated with a #2 Vicryl stitch. By definition, the hernia repair, which had been completed with an [place] mesh, had been taken down, so the midline fascia included incorporation of the area of herniation in terms of reclosure of that hernia site. Some of the overlying sac, which had been left in place, was also excised and sent as specimen. The midline fascia and hernia site were closed with a running #2 Vicryl stitch. The skin and subcutaneous tissue were obviously at high risk for wound infection and were, therefore, packed open for a planned delayed primary closure in roughly 48 hours. The patient was taken to the recovery room in satisfactory condition. Apart from the above findings, no additional complications were identified. Sloan Ibarra MD /[id number]
[2018-11-14] MEDS: HYDROmorphone/Normal Saline 15 MG/30 ML PCA IV PRN (15:20)
[2018-11-14] MEDS: Magnesium Sulfate/Water 2 GM in Premix Bag 1 BAG IV SCH ×2 (15:22→19:12)
[2018-11-14] MEDS: Pantoprazole 40 MG Vial IVPUSH SCH (19:04)
[2018-11-14] MEDS: Tamsulosin 0.4 MG Cap.ER PO SCH (20:14)
[2018-11-15] MEDS: Dextrose 5%-Lactated Ringers 1,000 ML IV SCH (00:24)
[2018-11-15] MEDS: Magnesium Sulfate/Water 2 GM in Premix Bag 1 BAG IV SCH ×4 (01:40→20:16)
[2018-11-15] MEDS: Meropenem 500 MG in Sodium Chloride 0.9% 50 ML IV SCH ×4 (04:23→21:28)
[2018-11-15] MEDS: Acetaminophen 500 MG Tab PO SCH ×4 (04:24→21:29)
--- NOTE | 2018-11-15 06:53 | PCM.PN ---
- General Info Date of Service: 11/15/18 Admission Dx/Problem (Free Text): Acute Abdominal Pain Subjective Update: Pt is feeling better today. Scopolamine patch helped with nausea. Passing more gas but no BM yet. He is up and walking and took in around 270 ml fluid yesterday. Functional Status: Reports: Pain Controlled, Tolerating Diet, Ambulating, Incentive Spirometry - Review of Systems General: Reports: No Symptoms HEENT: Reports: No Symptoms Pulmonary: Reports: No Symptoms Cardiovascular: Reports: No Symptoms Gastrointestinal: Reports: Abdominal Pain (sore at the incision site ) Genitourinary: Reports: No Symptoms Musculoskeletal: Reports: No Symptoms Skin: Reports: No Symptoms Neurological: Reports: No Symptoms Psychiatric: Reports: No Symptoms - Patient Data Vitals - Most Recent: Last Vital Signs Temp 36.6 C 11/15/18 03:03 Pulse 64 11/15/18 03:03 Resp 18 11/15/18 03:03 BP 98/59 L 11/15/18 03:03 Pulse Ox 95 11/15/18 06:28 Weight - Most Recent: 123.06 kg I&O - Last 24 Hours: Intake & Output 11/14/18 11/14/18 11/15/18 14:59 22:59 06:59 Intake Total 250 1097 1259 Output Total 1670 1130 825 Balance -1420 -33 434 Jonh Results Last 24 Hours: Microbiology 11/09/18 14:03 Aerobic Blood Culture - Final Blood - Venous Staphylococcus Capitis Anaerobic Blood Culture - Final NO GROWTH AFTER 5 DAYS 11/09/18 14:03 Aerobic Blood Culture - Final Blood - Venous - Lab Draw Viridans Streptococcus Anaerobic Blood Culture - Final NO GROWTH AFTER 5 DAYS Med Orders - Current: Current Medications Acetaminophen (Tylenol Extra Strength) 1,000 mg PO Q6H [facility] Last Admin: 11/15/18 04:24 Dose: 1,000 mg Hydromorphone HCl (Dilaudid Manufacturing Engineering Professor 15 Mg In Ns 30 Ml) 0 mg IV ASDIRECTED PRN; Protocol 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 Last Admin: 11/14/18 15:20 Dose: 15 mg Hydroxyzine HCl (Vistaril) 100 mg IM Q4H PRN PRN Reason: Pain Last Admin: 11/10/18 19:49 Dose: 100 mg Dextrose/Lactated Ringer's (Dextrose 5%-Lactated Ringers) 1,000 mls @ 100 mls/ hr IV ASDIRECTED [facility] Last Admin: 11/15/18 00:24 Dose: 100 mls/hr Meropenem 500 mg/ Sodium (Chloride) 50 mls @ 100 mls/hr IV Q6H [facility] Last Admin: 11/15/18 04:23 Dose: 100 mls/hr Ciprofloxacin/Dextrose (Cipro In D5w 400 Mg/200 Ml) 200 mls @ 200 mls/hr IV Q12H [facility] Last Admin: 11/14/18 19:08 Dose: 200 mls/hr Magnesium Sulfate 2 gm/ Premix 50 mls @ 25 mls/hr IV Q6H [facility] Stop: 11/16/18 09:59 Last Admin: 11/15/18 01:40 Dose: 25 mls/hr Labetalol HCl (Normodyne) 5 - 10 mg IVPUSH Q2H PRN; Protocol PRN Reason: Hypertension Melatonin (Melatonin) 6 mg PO BEDTIME PRN PRN Reason: SLEEP Naloxone HCl (Narcan) 0.1 mg IV ASDIRECTED PRN PRN Reason: decreased respiratory rate Scopolamine Patch (Check) 1 each TOP DAILY [facility] Last Admin: 11/14/18 11:03 Dose: Not Given Ondansetron HCl (Zofran) 4 mg IVPUSH Q4H PRN PRN Reason: Nausea/Vomiting Last Admin: 11/13/18 21:09 Dose: 4 mg Pantoprazole Sodium (Protonix Iv) 40 mg IVPUSH Q24H [facility] Last Admin: 11/14/18 19:04 Dose: 40 mg Scopolamine (Transderm-Scop) 1.5 mg TOP Q72H [facility] Tamsulosin HCl (Flomax) 0.4 mg PO BEDTIME [facility] Last Admin: 11/14/18 20:14 Dose: 0.4 mg Discontinued Medications Bupivacaine HCl (Marcaine 0.5%) Confirm Administered Dose 50 ml .ROUTE .STK-MED ONE Stop: 11/11/18 06:54 Last Admin: 11/11/18 09:50 Dose: 20 ml Ropivacaine 57 ml/Dexamethasone 8 mg/Epinephrine HCl 0.4 mg/ Sodium Chloride 20.6 ml 0 ml NERVRT ASDIRECTED [facility] Last Admin: 11/09/18 17:26 Dose: 80 syringe Ropivacaine 57 ml/Dexamethasone 8 mg/Epinephrine HCl 0.4 mg/ Sodium Chloride 20.6 ml 0 ml NERVRT ASDIRECTED [facility] Ropivacaine 57 ml/Dexamethasone 8 mg/Epinephrine HCl 0.4 mg/ Sodium Chloride 20.6 ml 0 ml NERVRT ASDIRECTED [facility] Last Admin: 11/11/18 09:42 Dose: 80 syringe Dexamethasone (Dexamethasone) Confirm Administered Dose 4 mg .ROUTE .STK-MED ONE Stop: 11/09/18 15:10 Fentanyl (Sublimaze) Confirm Administered Dose 250 mcg .ROUTE .STK-MED ONE Stop: 11/09/18 15:10 Fentanyl (Sublimaze) Confirm Administered Dose 100 mcg .ROUTE .STK-MED ONE Stop: 11/11/18 08:04 Glycopyrrolate (Robinul) Confirm Administered Dose 1 mg .ROUTE .STK-MED ONE Stop: 11/09/18 15:10 Hydromorphone HCl (Dilaudid) 0.5 mg IVPUSH ONETIME ONE Stop: 11/09/18 13:16 Last Admin: 11/09/18 13:49 Dose: 0.5 mg Hydromorphone HCl (Dilaudid) 0.5 mg IVPUSH ONETIME ONE Stop: 11/09/18 13:59 Last Admin: 11/09/18 14:13 Dose: 0.5 mg Sodium Chloride (Normal Saline) 1,000 mls @ [facility]: 11/09/18 13:51 Dose: 999 mls/hr Sodium Chloride (Normal Saline) 1,000 mls @ [facility] Last Admin: 11/09/18 14:15 Dose: 999 mls/hr Piperacillin Sod/Tazobactam (Sod 4.5 gm/ Sodium Chloride) 100 mls @ 100 mls/hr IV ONETIME ONE Stop: 11/09/18 15:23 Last Admin: 11/09/18 14:58 Dose: 100 mls/hr Sodium Chloride (Normal Saline) 75 mls @ 3.5 mls/sec IV ONETIME ONE Stop: 11/09/18 14:28 Last Admin: 11/09/18 14:45 Dose: 3 mls/sec Sodium Chloride (Normal Saline) Confirm Administered Dose 10 mls @ as directed .ROUTE .STK-MED ONE Stop: 11/09/18 16:22 Lactated Ringer's (Ringers, Lactated) Confirm Administered Dose 1,000 mls @ as directed .ROUTE .STK-MED ONE Stop: 11/09/18 17:33 Dextrose/Water (Dextrose 5% In Water) Confirm Administered Dose 250 mls @ as directed .ROUTE .STK-MED ONE Stop: 11/09/18 18:42 Last Admin: 11/09/18 19:24 Dose: Not Given Meropenem 500 mg/ Sodium (Chloride) 50 mls @ 100 mls/hr IV Q6H [facility] Last Admin: 11/10/18 01:00 Dose: 100 mls/hr Norepinephrine Bitartrate 4 mg (/ Dextrose/Water) 250 mls @ 3.75 mls/hr IV TITRATE [facility]; Protocol Last Titration: 11/10/18 09:16 Dose: 0 mcg/min, 0 mls/hr Aztreonam 1 gm/ Sodium (Chloride) 50 mls @ 100 mls/hr IV Q8H [facility] Lactated Ringer's (Ringers, Lactated) 1,000 mls @ 100 mls/hr IV ASDIRECTED [facility] Last Admin: 11/10/18 06:24 Dose: 100 mls/hr Lactated Ringer's (Ringers, Lactated) 750 mls @ 999 mls/hr IV ASDIRECTED [facility] Stop: 11/09/18 20:16 Last Admin: 11/09/18 19:43 Dose: 999 mls/hr Piperacillin Sod/Tazobactam (Sod 3.375 gm/ Sodium Chloride) 50 mls @ 100 mls/ hr IV Q6H [facility] Last Admin: 11/10/18 02:41 Dose: 100 mls/hr Piperacillin/Tazobactam/ (Dextrose 3.375 gm/ Premix) 50 mls @ 100 mls/hr IV Q6H [facility] Last Admin: 11/12/18 04:18 Dose: 100 mls/hr Lactated Ringer's (Ringers, Lactated) 1,000 mls @ 25 mls/hr IV ASDIRECTED [facility] Last Admin: 11/12/18 00:06 Dose: 25 mls/hr Iopamidol (Isovue-300 (61%)) 150 ml IV . DIRECTED [facility] Stop: 11/09/18 14:31 Last Admin: 11/09/18 14:45 Dose: 150 ml Lidocaine/Epinephrine (Xylocaine 1% With Epinephrine 1:100,000) Confirm Administered Dose 50 ml .ROUTE .STK-MED ONE Stop: 11/11/18 06:54 Last Admin: 11/11/18 09:51 Dose: 20 ml Meropenem (Merrem) Confirm Administered Dose 1,000 mg .ROUTE .STK-MED ONE Stop: 11/09/18 16:04 Last Admin: 11/09/18 16:45 Dose: 1,000 mg Meropenem (Merrem) Confirm Administered Dose 500 mg .ROUTE .STK-MED ONE Stop: 11/09/18 16:19 Last Admin: 11/09/18 16:45 Dose: 500 mg Meropenem (Merrem) Confirm Administered Dose 500 mg .ROUTE .STK-MED ONE Stop: 11/09/18 16:21 Last Admin: 11/09/18 16:45 Dose: 500 mg Meropenem (Merrem) Confirm Administered Dose 500 mg .ROUTE .STK-MED ONE Stop: 11/11/18 06:54 Last Admin: 11/11/18 09:50 Dose: 500 mg Neostigmine Methylsulfate (Neostigmine) Confirm Administered Dose 5 mg .ROUTE .STK-MED ONE Stop: 11/09/18 15:10 Norepinephrine Bitartrate (Levophed) Confirm Administered Dose 4 mg .ROUTE .STK- MED ONE Stop: 11/09/18 18:38 Last Admin: 11/09/18 19:24 Dose: Not Given Ondansetron HCl (Zofran) 4 mg IVPUSH ONETIME ONE Stop: 11/09/18 13:17 Last Admin: 11/09/18 13:48 Dose: 4 mg Ondansetron HCl (Zofran) Confirm Administered Dose 4 mg .ROUTE .STK-MED ONE Stop: 11/09/18 15:10 Pantoprazole Sodium (Protonix Iv) 40 mg IVPUSH Q12H [facility] Stop: 11/10/18 19:31 Last Admin: 11/10/18 19:28 Dose: 40 mg Phenylephrine HCl (Ian-Synephrine) Confirm Administered Dose 10 mg .ROUTE .STK- MED ONE Stop: 11/09/18 15:55 Propofol (Diprivan 20 Ml) Confirm Administered Dose 200 mg .ROUTE .STK-MED ONE Stop: 11/09/18 15:10 Propofol (Diprivan 20 Ml) Confirm Administered Dose 200 mg .ROUTE .STK-MED ONE Stop: 11/11/18 08:04 Rocuronium [place] (Zemuron) Confirm Administered Dose 50 mg .ROUTE .STK-MED ONE Stop: 11/09/18 15:10 Rocuronium [place] (Zemuron) Confirm Administered Dose 50 mg .ROUTE .STK-MED ONE Stop: 11/09/18 16:13 Scopolamine (Transderm-Scop) 1.5 mg TOP NOW ONE Stop: 11/14/18 07:46 Last Admin: 11/14/18 11:03 Dose: 1.5 mg Sodium Chloride (Saline Flush) 10 ml FLUSH ONETIME ONE Stop: 11/09/18 14:28 Last Admin: 11/09/18 14:45 Dose: 10 ml Succinylcholine Chloride (Quelicin) Confirm Administered Dose 200 mg .ROUTE .STK -MED ONE Stop: 11/09/18 15:10 - Exam Quality Assessment: DVT Prophylaxis General: Alert, Oriented HEENT: Pupils Equal, Pupils Reactive, EOMI, Mucous Membr. Moist/[place] Neck: Supple Lungs: Clear to Auscultation, Normal Respiratory Effort Cardiovascular: Regular Rate, Regular Rhythm GI/Abdominal Exam: Soft, No Distention, Tender Extremities: Normal Inspection Skin: Warm, Dry, Intact Wound/Incisions: Healing Well Neurological: No New Focal Deficit Psy/Mental Status: Alert, Normal Affect, Normal Mood - Problem List & Annotations (1) Incarcerated incisional hernia SNOMED Code(s): 371618138 Code(s): K43.0 - INCISIONAL HERNIA WITH OBSTRUCTION, WITHOUT GANGRENE Status: Acute Current Visit: No (2) Status post hernia repair SNOMED Code(s): 56275585872401, 64812659037204 Code(s): Z98.890 - OTHER SPECIFIED POSTPROCEDURAL STATES; Z87.19 - PERSONAL HISTORY OF OTHER DISEASES OF THE DIGESTIVE SYSTEM Status: Acute Current Visit: No Annotation/Comment:: Incisional (3) Sepsis SNOMED Code(s): 02302406 Code(s): A41.9 - SEPSIS, UNSPECIFIED ORGANISM Status: Acute Current Visit : Yes - Problem List Review Problem List Initiated/Reviewed/Updated: Yes - Assessment Assessment:: 1. S/P laparotomy exploratory with removal of intraabdominal mesh, repair intraabdominal abscess, partial sigmoid colon resection, incisional hernia repair, small bowel resection 2. Sepsis. 3. Hypomagnesemia - Plan Plan:: 1. S/P laparotomy exploratory with removal of intraabdominal mesh, repair intraabdominal abscess, partial sigmoid colon resection, incisional hernia repair, small bowel resection Delayed closure on 11/11/18. Continue with clear liquids. Activity as tolerated. If no BM by tomorrow morning will start some bowel stimulation. 2. Sepsis - Resolved Afebrile, WBC 7.1. Pt on Cipro and Meropenem. D5LR @ 100 ml/hr 3. Hypomagnesemia - replace 2gm Q6 hours for 48 hours
[2018-11-15] MEDS: Ciprofloxacin in D5W 200 ML IV SCH ×2 (07:26→20:14)
[2018-11-15] MEDS: SCOPOLAMINE PATCH CHECK TOP SCH (09:05)
[2018-11-15] MEDS: Ondansetron 4 MG/2 ML SDV IVPUSH PRN (14:45)
[2018-11-15] MEDS: HYDROmorphone/Normal Saline 15 MG/30 ML PCA IV PRN (18:06)
[2018-11-15] MEDS: Pantoprazole 40 MG Vial IVPUSH SCH (20:14)
[2018-11-15] MEDS: Tamsulosin 0.4 MG Cap.ER PO SCH (20:18)
[2018-11-15] MEDS: Melatonin 3 MG Tab PO PRN (20:20)
[2018-11-16] MEDS: Magnesium Sulfate/Water 2 GM in Premix Bag 1 BAG IV SCH ×2 (02:22→07:32)
[2018-11-16] MEDS: Meropenem 500 MG in Sodium Chloride 0.9% 50 ML IV SCH ×4 (02:22→21:05)
[2018-11-16] MEDS: Acetaminophen 500 MG Tab PO SCH ×4 (04:34→21:04)
[2018-11-16] MEDS: Dextrose 5%-Lactated Ringers 1,000 ML IV SCH ×2 (05:47→17:09)
--- NOTE | 2018-11-16 07:08 | PCM.PN ---
- General Info Date of Service: 11/16/18 Admission Dx/Problem (Free Text): Acute Abdominal Pain Subjective Update: Pt is doing well. Producing more gas but no BM yet. Took in 800 ml po yesterday. Still requiring a moderate amount of pain medication. Functional Status: Reports: Pain Controlled, Tolerating Diet, Ambulating, Urinating, Incentive Spirometry - Review of Systems General: Reports: No Symptoms HEENT: Reports: No Symptoms Pulmonary: Reports: No Symptoms Cardiovascular: Reports: No Symptoms Gastrointestinal: Reports: Abdominal Pain Genitourinary: Reports: No Symptoms Musculoskeletal: Reports: No Symptoms Skin: Reports: No Symptoms Neurological: Reports: No Symptoms Psychiatric: Reports: No Symptoms - Patient Data Vitals - Most Recent: Last Vital Signs Temp 36.6 C 11/16/18 02:25 Pulse 57 L 11/16/18 02:25 Resp 18 11/16/18 02:25 BP 107/74 11/16/18 02:25 Pulse Ox 95 11/16/18 06:47 Weight - Most Recent: 123.06 kg I&O - Last 24 Hours: Intake & Output 11/15/18 11/16/18 11/16/18 22:59 06:59 14:59 Intake Total 1311 837 Output Total 1955 1300 Balance -684 -233 Med Orders - Current: Current Medications Acetaminophen (Tylenol Extra Strength) 1,000 mg PO Q6H [facility] Last Admin: 11/16/18 04:34 Dose: 1,000 mg Hydromorphone HCl (Dilaudid Freelance Digital Project Manager 15 Mg In Ns 30 Ml) 0 mg IV ASDIRECTED PRN; 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 Last Admin: 11/15/18 18:06 Dose: 15 mg Hydroxyzine HCl (Vistaril) 100 mg IM Q4H PRN PRN Reason: Pain Last Admin: 11/10/18 19:49 Dose: 100 mg Dextrose/Lactated Ringer's (Dextrose 5%-Lactated Ringers) 1,000 mls @ 100 mls/ hr IV ASDIRECTED [facility] Last Admin: 11/16/18 05:47 Dose: 100 mls/hr Meropenem 500 mg/ Sodium (Chloride) 50 mls @ 100 mls/hr IV Q6H [facility] Last Admin: 11/16/18 02:22 Dose: 100 mls/hr Ciprofloxacin/Dextrose (Cipro In D5w 400 Mg/200 Ml) 200 mls @ 200 mls/hr IV Q12H [facility] Last Admin: 11/15/18 20:14 Dose: 200 mls/hr Magnesium Sulfate 2 gm/ Premix 50 mls @ 25 mls/hr IV Q6H [facility] Stop: 11/16/18 09:59 Last Admin: 11/16/18 02:22 Dose: 25 mls/hr Labetalol HCl (Normodyne) 5 - 10 mg IVPUSH Q2H PRN; Protocol PRN Reason: Hypertension Melatonin (Melatonin) 6 mg PO BEDTIME PRN PRN Reason: SLEEP Last Admin: 11/15/18 20:20 Dose: 6 mg Naloxone HCl (Narcan) 0.1 mg IV ASDIRECTED PRN PRN Reason: decreased respiratory rate Scopolamine Patch (Check) 1 each TOP DAILY [facility] Last Admin: 11/15/18 09:05 Dose: Not Given Ondansetron HCl (Zofran) 4 mg IVPUSH Q4H PRN PRN Reason: Nausea/Vomiting Last Admin: 11/15/18 14:45 Dose: 4 mg Pantoprazole Sodium (Protonix Iv) 40 mg IVPUSH Q24H [facility] Last Admin: 11/15/18 20:14 Dose: 40 mg Scopolamine (Transderm-Scop) 1.5 mg TOP Q72H [facility] Tamsulosin HCl (Flomax) 0.4 mg PO BEDTIME [facility] Last Admin: 11/15/18 20:18 Dose: 0.4 mg Discontinued Medications Bupivacaine HCl (Marcaine 0.5%) Confirm Administered Dose 50 ml .ROUTE .STK-MED ONE Stop: 11/11/18 06:54 Last Admin: 11/11/18 09:50 Dose: 20 ml Ropivacaine 57 ml/Dexamethasone 8 mg/Epinephrine HCl 0.4 mg/ Sodium Chloride 20.6 ml 0 ml NERVRT ASDIRECTED [facility] Last Admin: 11/09/18 17:26 Dose: 80 syringe Ropivacaine 57 ml/Dexamethasone 8 mg/Epinephrine HCl 0.4 mg/ Sodium Chloride 20.6 ml 0 ml NERVRT ASDIRECTED [facility] Ropivacaine 57 ml/Dexamethasone 8 mg/Epinephrine HCl 0.4 mg/ Sodium Chloride 20.6 ml 0 ml NERVRT ASDIRECTED [facility] Last Admin: 11/11/18 09:42 Dose: 80 syringe Dexamethasone (Dexamethasone) Confirm Administered Dose 4 mg .ROUTE .STK-MED ONE Stop: 11/09/18 15:10 Fentanyl (Sublimaze) Confirm Administered Dose 250 mcg .ROUTE .STK-MED ONE Stop: 11/09/18 15:10 Fentanyl (Sublimaze) Confirm Administered Dose 100 mcg .ROUTE .STK-MED ONE Stop: 11/11/18 08:04 Glycopyrrolate (Robinul) Confirm Administered Dose 1 mg .ROUTE .STK-MED ONE Stop: 11/09/18 15:10 Hydromorphone HCl (Dilaudid) 0.5 mg IVPUSH ONETIME ONE Stop: 11/09/18 13:16 Last Admin: 11/09/18 13:49 Dose: 0.5 mg Hydromorphone HCl (Dilaudid) 0.5 mg IVPUSH ONETIME ONE Stop: 11/09/18 13:59 Last Admin: 11/09/18 14:13 Dose: 0.5 mg Sodium Chloride (Normal Saline) 1,000 mls @ 999 mls/hr IV ASDIRECTED [facility] Last Admin: 11/09/18 13:51 Dose: 999 mls/hr Sodium Chloride (Normal Saline) 1,000 mls @ 999 mls/hr IV ASDIRECTED [facility] Last Admin: 11/09/18 14:15 Dose: 999 mls/hr Piperacillin Sod/Tazobactam (Sod 4.5 gm/ Sodium Chloride) 100 mls @ 100 mls/hr IV ONETIME ONE Stop: 11/09/18 15:23 Last Admin: 11/09/18 14:58 Dose: 100 mls/hr Sodium Chloride (Normal Saline) 75 mls @ 3.5 mls/sec IV ONETIME ONE Stop: 11/09/18 14:28 Last Admin: 11/09/18 14:45 Dose: 3 mls/sec Sodium Chloride (Normal Saline) Confirm Administered Dose 10 mls @ as directed .ROUTE .STK-MED ONE Stop: 11/09/18 16:22 Lactated Ringer's (Ringers, Lactated) Confirm Administered Dose 1,000 mls @ as directed .ROUTE .STK-MED ONE Stop: 11/09/18 17:33 Dextrose/Water (Dextrose 5% In Water) Confirm Administered Dose 250 mls @ as directed .ROUTE .STK-MED ONE Stop: 11/09/18 18:42 Last Admin: 11/09/18 19:24 Dose: Not Given Meropenem 500 mg/ Sodium (Chloride) 50 mls @ 100 mls/hr IV Q6H [facility] Last Admin: 11/10/18 01:00 Dose: 100 mls/hr Norepinephrine Bitartrate 4 mg (/ Dextrose/Water) 250 mls @ 3.75 mls/hr IV TITRATE [facility]; Protocol Last Titration: 11/10/18 09:16 Dose: 0 mcg/min, 0 mls/hr Aztreonam 1 gm/ Sodium (Chloride) 50 mls @ 100 mls/hr IV Q8H [facility] Lactated Ringer's (Ringers, Lactated) 1,000 mls @ 100 mls/hr IV ASDIRECTED [facility] Last Admin: 11/10/18 06:24 Dose: 100 mls/hr Lactated Ringer's (Ringers, Lactated) 750 mls @ 999 mls/hr IV ASDIRECTED [facility] Stop: 11/09/18 20:16 Last Admin: 11/09/18 19:43 Dose: 999 mls/hr Piperacillin Sod/Tazobactam (Sod 3.375 gm/ Sodium Chloride) 50 mls @ 100 mls/ hr IV Q6H [facility] Last Admin: 11/10/18 02:41 Dose: 100 mls/hr Piperacillin/Tazobactam/ (Dextrose 3.375 gm/ Premix) 50 mls @ 100 mls/hr IV Q6H [facility] Last Admin: 11/12/18 04:18 Dose: 100 mls/hr Lactated Ringer's (Ringers, Lactated) 1,000 mls @ 25 mls/hr IV ASDIRECTED [facility] Last Admin: 11/12/18 00:06 Dose: 25 mls/hr Iopamidol (Isovue-300 (61%)) 150 ml IV . DIRECTED [facility] Stop: 11/09/18 14:31 Last Admin: 11/09/18 14:45 Dose: 150 ml Lidocaine/Epinephrine (Xylocaine 1% With Epinephrine 1:100,000) Confirm Administered Dose 50 ml .ROUTE .STK-MED ONE Stop: 11/11/18 06:54 Last Admin: 11/11/18 09:51 Dose: 20 ml Meropenem (Merrem) Confirm Administered Dose 1,000 mg .ROUTE .STK-MED ONE Stop: 11/09/18 16:04 Last Admin: 11/09/18 16:45 Dose: 1,000 mg Meropenem (Merrem) Confirm Administered Dose 500 mg .ROUTE .STK-MED ONE Stop: 11/09/18 16:19 Last Admin: 11/09/18 16:45 Dose: 500 mg Meropenem (Merrem) Confirm Administered Dose 500 mg .ROUTE .STK-MED ONE Stop: 11/09/18 16:21 Last Admin: 11/09/18 16:45 Dose: 500 mg Meropenem (Merrem) Confirm Administered Dose 500 mg .ROUTE .STK-MED ONE Stop: 11/11/18 06:54 Last Admin: 11/11/18 09:50 Dose: 500 mg Neostigmine Methylsulfate (Neostigmine) Confirm Administered Dose 5 mg .ROUTE .STK-MED ONE Stop: 11/09/18 15:10 Norepinephrine Bitartrate (Levophed) Confirm Administered Dose 4 mg .ROUTE .STK- MED ONE Stop: 11/09/18 18:38 Last Admin: 11/09/18 19:24 Dose: Not Given Ondansetron HCl (Zofran) 4 mg IVPUSH ONETIME ONE Stop: 11/09/18 13:17 Last Admin: 11/09/18 13:48 Dose: 4 mg Ondansetron HCl (Zofran) Confirm Administered Dose 4 mg .ROUTE .STK-MED ONE Stop: 11/09/18 15:10 Pantoprazole Sodium (Protonix Iv) 40 mg IVPUSH Q12H [facility] Stop: 11/10/18 19:31 Last Admin: 11/10/18 19:28 Dose: 40 mg Phenylephrine HCl (Ian-Synephrine) Confirm Administered Dose 10 mg .ROUTE .STK- MED ONE Stop: 11/09/18 15:55 Propofol (Diprivan 20 Ml) Confirm Administered Dose 200 mg .ROUTE .STK-MED ONE Stop: 11/09/18 15:10 Propofol (Diprivan 20 Ml) Confirm Administered Dose 200 mg .ROUTE .STK-MED ONE Stop: 11/11/18 08:04 Rocuronium [place] (Zemuron) Confirm Administered Dose 50 mg .ROUTE .STK-MED ONE Stop: 11/09/18 15:10 Rocuronium [place] (Zemuron) Confirm Administered Dose 50 mg .ROUTE .STK-MED ONE Stop: 11/09/18 16:13 Scopolamine (Transderm-Scop) 1.5 mg TOP NOW ONE Stop: 11/14/18 07:46 Last Admin: 11/14/18 11:03 Dose: 1.5 mg Sodium Chloride (Saline Flush) 10 ml FLUSH ONETIME ONE Stop: 11/09/18 14:28 Last Admin: 11/09/18 14:45 Dose: 10 ml Succinylcholine Chloride (Quelicin) Confirm Administered Dose 200 mg .ROUTE .STK -MED ONE Stop: 11/09/18 15:10 - Exam Quality Assessment: DVT Prophylaxis General: Alert, Oriented HEENT: Pupils Equal, Pupils Reactive, EOMI, Mucous Membr. Moist/[place] Neck: Supple Lungs: Clear to Auscultation, Normal Respiratory Effort Cardiovascular: Regular Rate, Regular Rhythm GI/Abdominal Exam: No Distention, Tender Extremities: Normal Inspection, Normal Range of Motion, Non-Tender, No Pedal Edema, Normal Capillary Refill Skin: Warm, Dry, Intact Wound/Incisions: Healing Well Neurological: No New Focal Deficit Psy/Mental Status: Alert, Normal Affect, Normal Mood - Problem List & Annotations (1) Incarcerated incisional hernia SNOMED Code(s): 062484824 Code(s): K43.0 - INCISIONAL HERNIA WITH OBSTRUCTION, WITHOUT GANGRENE Status: Acute Current Visit: No (2) Status post hernia repair SNOMED Code(s): 93311615283446, 66449361442555 Code(s): Z98.890 - OTHER SPECIFIED POSTPROCEDURAL STATES; Z87.19 - PERSONAL HISTORY OF OTHER DISEASES OF THE DIGESTIVE SYSTEM Status: Acute Current Visit: No Annotation/Comment:: Incisional (3) Sepsis SNOMED Code(s): 87460043 Code(s): A41.9 - SEPSIS, UNSPECIFIED ORGANISM Status: Acute Current Visit : Yes - Problem List Review Problem List Initiated/Reviewed/Updated: Yes - Assessment Assessment:: 1. S/P laparotomy exploratory with removal of intraabdominal mesh, repair intraabdominal abscess, partial sigmoid colon resection, incisional hernia repair, small bowel resection 2. Sepsis. 3. Hypomagnesemia - Plan Plan:: 1. S/P laparotomy exploratory with removal of intraabdominal mesh, repair intraabdominal abscess, partial sigmoid colon resection, incisional hernia repair, small bowel resection Delayed closure on 11/11/18. Advance to full liquids. Activity as tolerated. One dose Dulcolax this am. Change to oral pain medication today. 2. Sepsis - Resolved Afebrile, WBC 7.1. Pt on Cipro and Meropenem. D5LR @ 100 ml/hr 3. Hypomagnesemia - replace 2gm Q6 hours for 48 hours. Repeat labs in AM.
[2018-11-16] MEDS: Ciprofloxacin in D5W 200 ML IV SCH ×2 (07:32→19:27)
[2018-11-16] MEDS: HYDROmorphone 2 MG Tab PO PRN ×4 (07:48→21:04)
[2018-11-16] MEDS ORDERED: Bisacodyl 10 MG Supp RECTAL ONE (08:00)
[2018-11-16] MEDS: SCOPOLAMINE PATCH CHECK TOP SCH (08:47)
[2018-11-16] MEDS: Pantoprazole 40 MG Vial IVPUSH SCH (19:26)
[2018-11-16] MEDS: hydrOXYzine HCl 100 MG/2 ML SDV IM PRN (19:27)
[2018-11-16] MEDS: Melatonin 3 MG Tab PO PRN (21:04)
[2018-11-16] MEDS: Tamsulosin 0.4 MG Cap.ER PO SCH (21:04)
[2018-11-17] MEDS: Acetaminophen 500 MG Tab PO SCH ×4 (03:29→21:50)
[2018-11-17] MEDS: Meropenem 500 MG in Sodium Chloride 0.9% 50 ML IV SCH ×4 (03:29→23:30)
[2018-11-17] MEDS: HYDROmorphone 2 MG Tab PO PRN ×4 (06:26→20:02)
[2018-11-17] MEDS: Dextrose 5%-Lactated Ringers 1,000 ML IV SCH ×2 (06:26→23:29)
[2018-11-17] MEDS: Ciprofloxacin in D5W 200 ML IV SCH ×2 (07:44→20:03)
[2018-11-17] MEDS ORDERED: Scopolamine 1.5 MG Transdermal Patch TOP SCH (08:00)
[2018-11-17] MEDS: Ibuprofen 600 MG Tab PO PRN ×2 (08:08→14:23)
--- NOTE | 2018-11-17 08:40 | PCM.PN ---
- General Info Date of Service: 11/17/18 Admission Dx/Problem (Free Text): Acute Abdominal Pain Subjective Update: Pt had small BM yesterday after suppository. Is tolerating full liquid diet well. Up and walking. 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 Functional Status: Reports: Pain Controlled, Tolerating Diet, Ambulating, Urinating, Incentive Spirometry - Review of Systems General: Reports: No Symptoms HEENT: Reports: No Symptoms Pulmonary: Reports: No Symptoms Cardiovascular: Reports: No Symptoms Gastrointestinal: Reports: Abdominal Pain Genitourinary: Reports: No Symptoms Musculoskeletal: Reports: No Symptoms Skin: Reports: No Symptoms Neurological: Reports: No Symptoms Psychiatric: Reports: No Symptoms - Patient Data Vitals - Most Recent: Last Vital Signs Temp 36.4 C 11/17/18 03:30 Pulse 70 11/17/18 03:30 Resp 16 11/17/18 03:30 BP 102/63 11/17/18 03:30 Pulse Ox 96 11/17/18 03:30 Weight - Most Recent: 123.06 kg I&O - Last 24 Hours: Intake & Output 11/16/18 11/17/18 11/17/18 22:59 06:59 14:59 Intake Total 2250 1900 200 Output Total 3785 1615 600 Balance -1535 285 -400 Lab Results Last 24 Hours: Laboratory Results - last 24 hr 11/17/18 11/17/18 Range/Units 04:15 04:15 WBC 6.6 (4.5-11.0) K/uL RBC 3.90 L (4.30-5.90) M/uL Hgb 11.5 L (12.0-15.0) g/dL Hct 36.0 L (40.0-54.0) % MCV 92 (80-98) fL MCH 30 (27-31) pg MCHC 32 (32-36) % Plt Count 266 (150-400) K/uL Sodium 136 L (140-148) mmol/L Potassium 4.6 (3.6-5.2) mmol/L Chloride 102 (100-108) mmol/L Carbon Dioxide 28 (21-32) mmol/L Anion Gap 10.6 (5.0-14.0) mmol/L BUN 10 (7-18) mg/dL Creatinine 1.1 (0.8-1.3) mg/dL Est Cr Clr Drug Dosing 75.58 mL/min Estimated GFR (MDRD) > 60 (>60) Glucose 106 (74-106) mg/dL Calcium 8.9 (8.5-10.1) mg/dL Phosphorus 3.3 (2.5-4.9) mg/dL Total Bilirubin 1.0 (0.2-1.0) mg/dL AST 26 (15-37) U/L ALT 47 (12-78) U/L Alkaline Phosphatase 55 (46-116) U/L Total Protein 6.4 (6.4-8.2) g/dL Albumin 2.3 L (3.4-5.0) g/dL Globulin 4.1 H (2.3-3.5) g/dL Albumin/Globulin Ratio 0.6 L (1.2-2.2) Med Orders - Current: Current Medications Acetaminophen (Tylenol Extra Strength) 1,000 mg PO Q6H [facility] Last Admin: 11/17/18 03:29 Dose: 1,000 mg Bisacodyl (Dulcolax) 20 mg PO ONETIME ONE Stop: 11/17/18 10:01 Hydromorphone HCl (Dilaudid) 2 - 4 mg PO Q4H PRN PRN Reason: Pain Last Admin: 11/17/18 06:26 Dose: 4 mg Hydroxyzine HCl (Vistaril) 100 mg IM Q4H PRN PRN Reason: Pain Last Admin: 11/16/18 19:27 Dose: 100 mg Dextrose/Lactated Ringer's (Dextrose 5%-Lactated Ringers) 1,000 mls @ 100 mls/ hr IV ASDIRECTED [facility] Last Admin: 11/17/18 06:26 Dose: 100 mls/hr Ciprofloxacin/Dextrose (Cipro In D5w 400 Mg/200 Ml) 200 mls @ 200 mls/hr IV Q12H [facility] Last Admin: 11/17/18 07:44 Dose: 200 mls/hr Ibuprofen (Motrin) 600 mg PO Q6H PRN PRN Reason: Pain Last Admin: 11/17/18 08:08 Dose: 600 mg Labetalol HCl (Normodyne) 5 - 10 mg IVPUSH Q2H PRN; Protocol PRN Reason: Hypertension Magnesium Hydroxide (Milk Of Magnesia) 30 ml PO ONETIME ONE Stop: 11/17/18 09:01 Melatonin (Melatonin) 6 mg PO BEDTIME PRN PRN Reason: SLEEP Last Admin: 11/16/18 21:04 Dose: 6 mg Scopolamine Patch (Check) 1 each TOP DAILY [facility] Last Admin: 11/16/18 08:47 Dose: Not Given Ondansetron HCl (Zofran) 4 mg IVPUSH Q4H PRN PRN Reason: Nausea/Vomiting Last Admin: 11/15/18 14:45 Dose: 4 mg Pantoprazole Sodium (Protonix) 40 mg PO BEDTIME [facility] Scopolamine (Transderm-Scop) 1.5 mg TOP Q72H [facility] Last Admin: 11/17/18 07:56 Dose: 1.5 mg Tamsulosin HCl (Flomax) 0.4 mg PO BEDTIME [facility] Last Admin: 11/16/18 21:04 Dose: 0.4 mg Discontinued Medications Bisacodyl (Dulcolax) 10 mg RECTAL ONETIME ONE Stop: 11/16/18 08:01 Last Admin: 11/16/18 07:32 Dose: 10 mg Bupivacaine HCl (Marcaine 0.5%) Confirm Administered Dose 50 ml .ROUTE .STK-MED ONE Stop: 11/11/18 06:54 Last Admin: 11/11/18 09:50 Dose: 20 ml Ropivacaine 57 ml/Dexamethasone 8 mg/Epinephrine HCl 0.4 mg/ Sodium Chloride 20.6 ml 0 ml NERVRT ASDIRECTED [facility] Last Admin: 11/09/18 17:26 Dose: 80 syringe Ropivacaine 57 ml/Dexamethasone 8 mg/Epinephrine HCl 0.4 mg/ Sodium Chloride 20.6 ml 0 ml NERVRT ASDIRECTED [facility] Ropivacaine 57 ml/Dexamethasone 8 mg/Epinephrine HCl 0.4 mg/ Sodium Chloride 20.6 ml 0 ml NERVRT ASDIRECTED [facility] Last Admin: 11/11/18 09:42 Dose: 80 syringe Dexamethasone (Dexamethasone) Confirm Administered Dose 4 mg .ROUTE .STK-MED ONE Stop: 11/09/18 15:10 Fentanyl (Sublimaze) Confirm Administered Dose 250 mcg .ROUTE .STK-MED ONE Stop: 11/09/18 15:10 Fentanyl (Sublimaze) Confirm Administered Dose 100 mcg .ROUTE .STK-MED ONE Stop: 11/11/18 08:04 Glycopyrrolate (Robinul) Confirm Administered Dose 1 mg .ROUTE .STK-MED ONE Stop: 11/09/18 15:10 Hydromorphone HCl (Dilaudid) 0.5 mg IVPUSH ONETIME ONE Stop: 11/09/18 13:16 Last Admin: 11/09/18 13:49 Dose: 0.5 mg Hydromorphone HCl (Dilaudid) 0.5 mg IVPUSH ONETIME ONE Stop: 11/09/18 13:59 Last Admin: 11/09/18 14:13 Dose: 0.5 mg Hydromorphone HCl (Dilaudid Estimating Engineer 15 Mg In Ns 30 Ml) 0 mg IV ASDIRECTED PRN; Protocol PRN Reason: LACING OPERATOR PAIN CONTROL Last Admin: 11/15/18 18:06 Dose: 15 mg Sodium Chloride (Normal Saline) 1,000 mls @ 999 mls/hr IV ASDIRECTED [facility] Last Admin: 11/09/18 13:51 Dose: 999 mls/hr Sodium Chloride (Normal Saline) 1,000 mls @ 999 mls/hr IV ASDIRECTED [facility] Last Admin: 11/09/18 14:15 Dose: 999 mls/hr Piperacillin Sod/Tazobactam (Sod 4.5 gm/ Sodium Chloride) 100 mls @ 100 mls/hr IV ONETIME ONE Stop: 11/09/18 15:23 Last Admin: 11/09/18 14:58 Dose: 100 mls/hr Sodium Chloride (Normal Saline) 75 mls @ 3.5 mls/sec IV ONETIME ONE Stop: 11/09/18 14:28 Last Admin: 11/09/18 14:45 Dose: 3 mls/sec Sodium Chloride (Normal Saline) Confirm Administered Dose 10 mls @ as directed .ROUTE .STK-MED ONE Stop: 11/09/18 16:22 Lactated Ringer's (Ringers, Lactated) Confirm Administered Dose 1,000 mls @ as directed .ROUTE .STK-MED ONE Stop: 11/09/18 17:33 Dextrose/Water (Dextrose 5% In Water) Confirm Administered Dose 250 mls @ as directed .ROUTE .STK-MED ONE Stop: 11/09/18 18:42 Last Admin: 11/09/18 19:24 Dose: Not Given Meropenem 500 mg/ Sodium (Chloride) 50 mls @ 100 mls/hr IV Q6H [facility] Last Admin: 11/10/18 01:00 Dose: 100 mls/hr Norepinephrine Bitartrate 4 mg (/ Dextrose/Water) 250 mls @ 3.75 mls/hr IV TITRATE [facility]; Protocol Last Titration: 11/10/18 09:16 Dose: 0 mcg/min, 0 mls/hr Aztreonam 1 gm/ Sodium (Chloride) 50 mls @ 100 mls/hr IV Q8H [facility] Lactated Ringer's (Ringers, Lactated) 1,000 mls @ 100 mls/hr IV ASDIRECTED [facility] Last Admin: 11/10/18 06:24 Dose: 100 mls/hr Lactated Ringer's (Ringers, Lactated) 750 mls @ 999 mls/hr IV ASDIRECTED [facility] Stop: 11/09/18 20:16 Last Admin: 11/09/18 19:43 Dose: 999 mls/hr Piperacillin Sod/Tazobactam (Sod 3.375 gm/ Sodium Chloride) 50 mls @ 100 mls/ hr IV Q6H [facility] Last Admin: 11/10/18 02:41 Dose: 100 mls/hr Piperacillin/Tazobactam/ (Dextrose 3.375 gm/ Premix) 50 mls @ 100 mls/hr IV Q6H [facility] Last Admin: 11/12/18 04:18 Dose: 100 mls/hr Meropenem 500 mg/ Sodium (Chloride) 50 mls @ 100 mls/hr IV Q6H [facility] Last Admin: 11/17/18 03:29 Dose: 100 mls/hr Lactated Ringer's (Ringers, Lactated) 1,000 mls @ 25 mls/hr IV ASDIRECTED [facility] Last Admin: 11/12/18 00:06 Dose: 25 mls/hr Magnesium Sulfate 2 gm/ Premix 50 mls @ 25 mls/hr IV Q6H [facility] Stop: 11/16/18 09:59 Last Admin: 11/16/18 07:32 Dose: 25 mls/hr Iopamidol (Isovue-300 (61%)) 150 ml IV . DIRECTED [facility] Stop: 11/09/18 14:31 Last Admin: 11/09/18 14:45 Dose: 150 ml Lidocaine/Epinephrine (Xylocaine 1% With Epinephrine 1:100,000) Confirm Administered Dose 50 ml .ROUTE .STK-MED ONE Stop: 11/11/18 06:54 Last Admin: 11/11/18 09:51 Dose: 20 ml Meropenem (Merrem) Confirm Administered Dose 1,000 mg .ROUTE .STK-MED ONE Stop: 11/09/18 16:04 Last Admin: 11/09/18 16:45 Dose: 1,000 mg Meropenem (Merrem) Confirm Administered Dose 500 mg .ROUTE .STK-MED ONE Stop: 11/09/18 16:19 Last Admin: 11/09/18 16:45 Dose: 500 mg Meropenem (Merrem) Confirm Administered Dose 500 mg .ROUTE .STK-MED ONE Stop: 11/09/18 16:21 Last Admin: 11/09/18 16:45 Dose: 500 mg Meropenem (Merrem) Confirm Administered Dose 500 mg .ROUTE .STK-MED ONE Stop: 11/11/18 06:54 Last Admin: 11/11/18 09:50 Dose: 500 mg Naloxone HCl (Narcan) 0.1 mg IV ASDIRECTED PRN PRN Reason: decreased respiratory rate Neostigmine Methylsulfate (Neostigmine) Confirm Administered Dose 5 mg .ROUTE .STK-MED ONE Stop: 11/09/18 15:10 Norepinephrine Bitartrate (Levophed) Confirm Administered Dose 4 mg .ROUTE .STK- MED ONE Stop: 11/09/18 18:38 Last Admin: 11/09/18 19:24 Dose: Not Given Ondansetron HCl (Zofran) 4 mg IVPUSH ONETIME ONE Stop: 11/09/18 13:17 Last Admin: 11/09/18 13:48 Dose: 4 mg Ondansetron HCl (Zofran) Confirm Administered Dose 4 mg .ROUTE .STK-MED ONE Stop: 11/09/18 15:10 Pantoprazole Sodium (Protonix Iv) 40 mg IVPUSH Q12H [facility] Stop: 11/10/18 19:31 Last Admin: 11/10/18 19:28 Dose: 40 mg Pantoprazole Sodium (Protonix Iv) 40 mg IVPUSH Q24H [facility] Last Admin: 11/16/18 19:26 Dose: 40 mg Phenylephrine HCl (Ian-Synephrine) Confirm Administered Dose 10 mg .ROUTE .STK- MED ONE Stop: 11/09/18 15:55 Propofol (Diprivan 20 Ml) Confirm Administered Dose 200 mg .ROUTE .STK-MED ONE Stop: 11/09/18 15:10 Propofol (Diprivan 20 Ml) Confirm Administered Dose 200 mg .ROUTE .STK-MED ONE Stop: 11/11/18 08:04 Rocuronium [place] (Zemuron) Confirm Administered Dose 50 mg .ROUTE .STK-MED ONE Stop: 11/09/18 15:10 Rocuronium [place] (Zemuron) Confirm Administered Dose 50 mg .ROUTE .STK-MED ONE Stop: 11/09/18 16:13 Scopolamine (Transderm-Scop) 1.5 mg TOP NOW ONE Stop: 11/14/18 07:46 Last Admin: 11/14/18 11:03 Dose: 1.5 mg Sodium Chloride (Saline Flush) 10 ml FLUSH ONETIME ONE Stop: 11/09/18 14:28 Last Admin: 11/09/18 14:45 Dose: 10 ml Succinylcholine Chloride (Quelicin) Confirm Administered Dose 200 mg .ROUTE .STK -MED ONE Stop: 11/09/18 15:10 - Exam Quality Assessment: DVT Prophylaxis General: Alert, Oriented HEENT: Pupils Equal, Pupils Reactive, EOMI, Mucous Membr. Moist/[place] Neck: Supple Lungs: Clear to Auscultation, Normal Respiratory Effort Cardiovascular: Regular Rate, Regular Rhythm GI/Abdominal Exam: Normal Bowel Sounds, Soft, Tender Extremities: Normal Inspection, Normal Range of Motion, Non-Tender, No Pedal Edema, Normal Capillary Refill Skin: Warm, Dry, Intact Wound/Incisions: Healing Well Neurological: No New Focal Deficit Psy/Mental Status: Alert, Normal Affect, Normal Mood - Problem List & Annotations (1) Incarcerated incisional hernia SNOMED Code(s): 821194414 Code(s): K43.0 - INCISIONAL HERNIA WITH OBSTRUCTION, WITHOUT GANGRENE Status: Acute Current Visit: No (2) Status post hernia repair SNOMED Code(s): 32821958407505, 74088075277285 Code(s): Z98.890 - OTHER SPECIFIED POSTPROCEDURAL STATES; Z87.19 - PERSONAL HISTORY OF OTHER DISEASES OF THE DIGESTIVE SYSTEM Status: Acute Current Visit: No Annotation/Comment:: Incisional (3) Sepsis SNOMED Code(s): 09038557 Code(s): A41.9 - SEPSIS, UNSPECIFIED ORGANISM Status: Acute Current Visit : Yes - Problem List Review Problem List Initiated/Reviewed/Updated: Yes - Assessment Assessment:: 1. S/P laparotomy exploratory with removal of intraabdominal mesh, repair intraabdominal abscess, partial sigmoid colon resection, incisional hernia repair, small bowel resection 2. Sepsis. 3. Hypomagnesemia - Plan Plan:: 1. S/P laparotomy exploratory with removal of intraabdominal mesh, repair intraabdominal abscess, partial sigmoid colon resection, incisional hernia repair, small bowel resection Delayed closure on 11/11/18. Continue with full liquids. Activity as tolerated. Milk of mg this am. Continue with current pain regimen for now. Will remove YASMINE drains prior to discharge. 2. Sepsis - Resolved Afebrile. Received on Cipro and Meropenem. 3. Hypomagnesemia - Magnesium replacement completed.
[2018-11-17] MEDS: SCOPOLAMINE PATCH CHECK TOP SCH (08:46)
[2018-11-17] MEDS ORDERED: Magnesium Hydroxide 400 MG/5 ML Susp 30 ML Cup PO ONE (09:00)
[2018-11-17] MEDS ORDERED: Bisacodyl 5 MG Tab PO ONE (10:00)
[2018-11-17] MEDS: Tamsulosin 0.4 MG Cap.ER PO SCH (21:50)
[2018-11-17] MEDS: Pantoprazole 40 MG Tab.CR PO SCH (21:50)
[2018-11-18] MEDS: Acetaminophen 500 MG Tab PO SCH ×4 (03:21→21:37)
[2018-11-18] MEDS: Ciprofloxacin in D5W 200 ML IV SCH (08:43)
[2018-11-18] MEDS: Meropenem 500 MG in Sodium Chloride 0.9% 50 ML IV SCH (08:43)
[2018-11-18] MEDS: HYDROmorphone 2 MG Tab PO PRN ×3 (08:46→19:42)
[2018-11-18] MEDS: Ibuprofen 600 MG Tab PO PRN ×3 (08:47→21:37)
[2018-11-18] MEDS: SCOPOLAMINE PATCH CHECK TOP SCH (08:48)
--- NOTE | 2018-11-18 09:40 | PN ---
DATE OF SERVICE: 11/18/2018 SUBJECTIVE: IV infiltrated yesterday. He had 1 large bowel movement and has had several loose bowel movements. Vital signs have been stable. Pain has been managed. Oral intake 1766. Urine output 415. YASMINE drains have put out 20, 25, and 0 respectively. The midline YASMINE drain has not been draining anything. There is some redness reported around YASMINE drain site. Remainder of review of systems negative for any pertinent positives and negatives. OBJECTIVE: GENERAL: Gaston Barnes is a 58-year-old male, alert, orientated. VITAL SIGNS: TPR 97.8, 66, 18, blood pressure 111/73. HEENT: Negative. NECK: Supple. HEART: Regular rate and rhythm. LUNGS: Clear. ABDOMEN: Stapled incision looks good. YASMINE drains are intact. The midline top YASMINE drain, there is an area of redness and firmness noted around the YASMINE drain site and is extending around the top part of the stapled incision. The rest of the YASMINE drains are negative. Abdominal binder has been on. EXTREMITIES: Without peripheral edema. ASSESSMENT: 1. Exploratory laparotomy with drainage of focal intraabdominal abscess. 2. Rectosigmoid resection with coloproctostomy, small bowel resection, and removal of contaminated intraabdominal mesh and repair of recurrent incisional hernia for perforated diverticulum involving the sigmoid colon with contaminated intraperitoneal mesh, segment of small bowel deserosalization, SP takedown of adhesions, focal intraabdominal abscess, and recurrent incisional hernia. Date of surgery, 11/09/2018. Sepsis resolved. PLAN: 1. Discontinue all 3 YASMINE drains. 2. Cipro 500 mg p.o. b.i.d. 3. Continue soft solid diet. 4. Ambulation and incentive spirometer. 5. We will evaluate p.r.n. or in a.m. 6. Plan to discharge in a.m. Shellie Eden PA-C /[id number]
[2018-11-18] MEDS: Ciprofloxacin 500 MG Tab PO SCH ×2 (10:20→21:37)
[2018-11-18] MEDS: Pantoprazole 40 MG Tab.CR PO SCH (21:37)
[2018-11-18] MEDS: Tamsulosin 0.4 MG Cap.ER PO SCH (21:37)
[2018-11-18] MEDS: Melatonin 3 MG Tab PO PRN (21:37)
[2018-11-19] MEDS: HYDROmorphone 2 MG Tab PO PRN ×3 (00:29→08:04)
[2018-11-19] MEDS: Acetaminophen 500 MG Tab PO SCH (04:11)
[2018-11-19] MEDS: Ibuprofen 600 MG Tab PO PRN (08:04)
[2018-11-19] MEDS: Ciprofloxacin 500 MG Tab PO SCH (08:06)
[2018-11-19] MEDS: SCOPOLAMINE PATCH CHECK TOP SCH (08:07)
--- NOTE | 2018-11-19 08:33 | DISCH ---
ADMISSION DIAGNOSES: 1. Severe abdominal pain. 2. Status post laparoscopic hernia repair. 3. Hypercholesterolemia. 4. Gastroesophageal reflux disease. 5. Chronic back pain. DISCHARGE DIAGNOSES: 1. Exploratory laparotomy with drainage of focal intraabdominal abscess. 2. Rectosigmoid resection with coloproctostomy, small bowel resection, and removal of contaminated intraperitoneal mesh and repair of recurrent incisional hernia for perforated diverticulum involving the sigmoid colon with contaminated intraperitoneal mesh, segment of small bowel deserialization, takedown of adhesions, focal intraabdominal abscess, and recurrent incisional hernia. Date of surgery: 11/09/2018. 3. Sepsis on admission, resolved. 4. Delayed primary closure on 11/11/2018. Sloan Ibarra MD. HISTORY: Gaston Barnes was discharged following a laparoscopic hernia repair and presented back to the emergency room with severe abdominal pain. After preoperative evaluation and discussion of possible risks and possible complications, he wished to proceed with surgical procedure. HOSPITAL COURSE: Gaston had his surgery on 11/09/2018. He had no operative complications. On postoperative day #1, he remained on clear liquids. 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 On postoperative day #2, blood cultures were gram-positive cocci. He was started on meropenem and Zosyn. When the cultures came back, he was continued on the meropenem and switched to IV Cipro. Abdominal fluid, final reports of anaerobic gram-negative rods and Escherichia coli, gram-positive rods. Blood showed Viridans Streptococcus and Staphylococcus capitis. Hemoglobin on 11/12/2018, 11.6; white count was 1360; and he continued to be on ice chips. On 11/13, orders remained the same, waiting for bowels to start working. He was started on a suppository and was on clear liquids until he was able to start full liquids on 11/16/2018. He did have a bowel movement later that day and again on 11/18/2018, he had 3 loose bowel movements. His pain was controlled. He was on oral pain medication. He was up ambulating and he was able to be discharged to home on 11/19/2018 without any complications. PHYSICAL EXAMINATION: GENERAL: Gaston is a 58-year-old male. VITAL SIGNS: Height is 5 feet 10 inches, weight is 271 pounds. BMI is 38. TPR is 96.6, 62, 16, blood pressure is 106/68. HEENT: Negative. NECK: Supple. HEART: Regular rate and rhythm. LUNGS: Clear. ABDOMEN: There is a small area of firmness and it is a little bit red in color and nontender to touch. There is an area, it is the area at the top of his abdomen where his abdomen normally increases and he has another area in left mid abdomen that is red in color, but not quite as firm. Abdominal binder has been on. EXTREMITIES: Without peripheral edema. DISPOSITION: Discharged to home. CONDITION: Stable and improving. FOLLOWUP: Followup appointment: Sloan Ibarra on 11/22/2018 at 10 a.m. HOME MEDICATIONS: 1. Cipro 500 mg b.i.d. for 1 week. 2. Colace 100 mg oral twice daily #100. 3. Dilaudid 2 mg 1 to 2 every 4 hours p.r.n. pain #42. 4. Tylenol Extra Strength 1000 mg oral q.6 h. 5. Ibuprofen 600 mg q.6 h. p.r.n. pain. 6. Lisinopril 10 mg oral daily. 7. Milk of magnesia 30 mL, two were sent home with the patient p.r.n. constipation. 8. Flomax 0.4 mg oral at bedtime. DIET: GI soft, solid, low residue diet. Drink 8 to 10 glasses of water a day. ACTIVITY: No lifting greater than 10 pounds for 6 weeks. Other activity, walk 6 times daily, distance and time as tolerated. Driving after discharge; do not drive for 1 week and while on pain medication. Shower/bathing; may shower. DISCHARGE INSTRUCTIONS: Notify provider if any fever, increased pain, swelling, redness, nausea, or vomiting. Wound incision care, keep site clean and dry. Wear abdominal binder for 6 weeks and then as tolerated. Use incentive spirometer 10 times every hour while awake for 1 week.
[2018-11-19] MEDS ORDERED: Docusate Sodium 100 MG Cap PO SCH (09:00)
== END 2018-11-19 10:00 | disposition home or self-care (01) | DRG 856 ==
LOC: JP.ED 13:07 → JP.SDS 14:58 → JP.ICU 18:05 → JP.MS 11-12 10:40
PROVIDERS: ADMIT Surgery; ATTEND Surgery
PROC: 0DBN0ZX Excision of Sigmoid Colon, Open Approach, Diagnostic (ICD-10-PCS; principal; 2018-11-09)
PROC: 0DBP0ZX Excision of Rectum, Open Approach, Diagnostic (ICD-10-PCS; 2018-11-09)
PROC: 0DB80ZX Excision of Small Intestine, Open Approach, Diagnostic (ICD-10-PCS; 2018-11-09)
PROC: 0WQF0ZZ Repair Abdominal Wall, Open Approach (ICD-10-PCS; 2018-11-09)
PROC: 0WPG0YZ Removal of Other Device from Peritoneal Cavity, Open Approach (ICD-10-PCS; 2018-11-09)
PROC: 0D9W00Z Drainage of Peritoneum with Drainage Device, Open Approach (ICD-10-PCS; 2018-11-09)
PROC: 0WQF0ZZ Repair Abdominal Wall, Open Approach (ICD-10-PCS; 2018-11-11)
DX: T81.49XA Infection following a procedure, other surgical site, initial encounter (principal); A41.51 Sepsis due to Escherichia coli [E. coli]; A41.1 Sepsis due to other specified staphylococcus; K65.1 Peritoneal abscess; K43.0 Incisional hernia with obstruction, without gangrene; K57.20 Diverticulitis of large intestine with perforation and abscess without bleeding; K55.9 Vascular disorder of intestine, unspecified; Z98.890 Other specified postprocedural states; R10.0 Acute abdomen; V00-Y99 External causes of morbidity; Y84.8 Other medical procedures as the cause of abnormal reaction of the patient, or of later complication, without mention of misadventure at the time of the procedure; Z48.1 Encounter for planned postprocedural wound closure; E83.42 Hypomagnesemia; Z88.5 Allergy status to narcotic agent
CPT/HCPCS: 36415; 44120; 44145; 49020; 49402; 49565; 71046; 74177; 80053; 81001; 83605; 85025; 87040 ×2; 87070 ×2; 87075 ×2; 87077 ×4; 87186 ×2; 87205 ×2; 88300; 88302; 88307; 93005; 93010; 96361; 96365; 96375; 96376; 99285; J0171; J0330; J1100 ×2; J1170 ×2; J2185 ×3; J2370; J2405 ×2; J2543; J2704; J2710; J2795; J3010; J3490; J7030 ×4; J7050; J7120 ×2; 83735; 83880; 84100; 85027; 94762; A9270-GY; C9113; J0744; J3410; J3475; J7042; J7060

== ENCOUNTER 2018-11-20 20:53 | Emergency (ER) | payer MEDICARE, OTHER ==
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
--- NOTE | 2018-11-20 23:08 | CRLCR ---
Indication: Abdomen pain Technique: Abdomen 1 view. Comparison: Abdomen and pelvis CT 11/09/2018 Findings: Skin zarina are present in the vertical incision pattern air is present under the left hemidiaphragm, likely within the stomach. No air seen under the right hemidiaphragm. Small air-fluid levels noted without dilated loops of bowel. Impression: Status post interval abdominal surgery without dilated loops of bowel within the upper abdomen. Air under the left hemidiaphragm likely corresponds to stomach. Dictated by Cornell Franklin MD @ Nov 20 2018 11:03PM Signed by Dr. Cornell Franklin @ Nov 20 2018 11:07PM
[2018-11-20] MEDS ORDERED: Magnesium Citrate Solution 296 ML Bottle PO ONE (23:27)
== END 2018-11-20 23:37 | disposition home or self-care (01) ==
LOC: JP.ED 20:53
DX: T81.43XA Infection following a procedure, organ and space surgical site, initial encounter (principal); E66.9 Obesity, unspecified; Z88.8 Allergy status to other drugs, medicaments and biological substances; Z79.899 Other long term (current) drug therapy
CPT/HCPCS: 36415; 74018; 80053; 81001; 83605; 85025; 86140; 99283; 99284; A9270